=== PATIENT | female | born 1975 | race African-American/Black ===

== ENCOUNTER 2017-09-06 17:13 | Emergency (ER) | payer BC, OTHER ==
--- NOTE | 2017-09-06 17:39 | PDOC ---
Rapid Medical Evaluation Chief Complaint: AV shunt bleeding Time Seen by Provider: 09/06/17 17:35 Medical Evaluation: Allergies Allergy/AdvReac Type Severity Reaction Status Date / Time Penicillins Allergy Mild Rash Verified 09/06/17 17:34 09/06/17 17:35 I have performed a brief in-person evaluation of this patient. The patient presents with a chief complaint of abdominal cramping with vaginal bleeding with clots. States wakes up in cold sweats and having chills. Also reports heavy bleeding with headache. Reports just completed 2 cycles of ivf. Pertinent physical exam findings are even and unlabored breathing, clear bilaterally abdomen soft with generalized abdominal tenderness I have ordered the following urine and analgesia this patient will proceed to the ED for further evaluation.
[2017-09-06 17:40] VITALS: BMI 41.3
[2017-09-06] MEDS ORDERED: ACETAMINOPHEN 500 MG TABLET (FP) PO ONE (17:40)
--- NOTE | 2017-09-06 18:07 | PDOC ---
History of Present Illness - General Chief Complaint: Vaginal Bleeding Stated Complaint: PAIN Time Seen by Provider: 09/06/17 17:35 - History of Present Illness Initial Comments: 42 year old female currently undergoing IVF (had a second round 12 days prior) that have been unsuccessful (recently deemed unsuccessful on Tuesday09/02/17) presenting with vaginal bleeding for the pat 4 days. States that she has had heavy bleeding after cessation of her IVF hormones in the past but thee past few days she has soaked through 4-5 pads per day. She als feels wak and has a headache. Denies nausea, vomiting, diarrhea, constipation, fevers, chills, or other sick symptoms. 09/06/17 20:33 Past History - Past Medical History Allergies/Adverse Reactions: Allergies Allergy/AdvReac Type Severity Reaction Status Date / Time Penicillins Allergy Mild Rash Verified 09/06/17 17:34 Home Medications: Ambulatory Orders NK [No Known Home Medication] 09/06/17 Anemia: No Asthma: Yes Cancer: No Cardiac Disorders: No CVA: No COPD: Yes CHF: No Dementia: No Diabetes: No GI Disorders: Yes (GERD) Disorders: No HTN: No Hypercholesterolemia: No Liver Disease: No Seizures: No Thyroid Disease: No - Surgical History Abdominal Surgery: Yes (TUMMY ABHINAV 2003,GASTRIC BANDING 02/03/15) Appendectomy: No Cardiac Surgery: No Cholecystectomy: No GI Surgery: Yes (lap band) Lung Surgery: No Orthopedic Surgery: Yes (CARPAL TUNNEL) - Immunization History Td Vaccination: No Immunization Up to Date: Yes - Suicide/Smoking/Psychosocial Hx Smoking Status: No Smoking History: Never smoked Have you smoked in the past 12 months: No Number of Cigarettes Smoked Daily: 0 Information on smoking cessation initiated: No Hx Alcohol Use: No Drug/Substance Use Hx: No Substance Use Type: None Hx Substance Use Treatment: No Review of Systems - Review of Systems Constitutional: No: Chills, Diaphoresis, Fever HEENTM: No: See HPI, Eye Pain, Blurred Vision Respiratory: No: Cough, Orthopnea, Shortness of Breath Cardiac (ROS): No: See HPI, Chest Pain, Edema, Irregular Heart Rate ABD/GI: No: Constipated, Diarrhea, Nausea, Poor Appetite, Vomiting : No: Burning, Dysuria, Discharge, Hematuria Musculoskeletal: No: Joint Pain, Joint Swelling, Muscle Pain, Muscle Weakness Integumentary: No: Bruising, Change in Color, Erythema, Flushing, Lesions, Lumps Neurological: Yes: Headache. No: Numbness, Paresthesia Psychiatric: No: Anxiety, Depression *Physical Exam - Vital Signs Last Vital Signs Temp Pulse Resp BP Pulse Ox 98.4 F 79 18 115/88 100 09/06/17 17:35 09/06/17 17:35 09/06/17 17:35 09/06/17 17:35 09/06/17 17:35 - Physical Exam General Appearance: Yes: Nourished, Appropriately Dressed. No: Apparent Distress HEENT: positive: EOMI, CHULA, Normal ENT Inspection, Normal Voice Neck: positive: Trachea midline, Normal Thyroid, Supple. negative: Tender, Rigid Respiratory/Chest: positive: Lungs Clear, Normal Breath Sounds. negative: Chest Tender, Respiratory Distress, Accessory Muscle Use Cardiovascular: positive: Regular Rhythm, Regular Rate Female Pelvic Exam: positive: normal external exam, cervical os closed, normal adnexa, normal size ovaries, other (small amount of blood in the vaginal valt but no active bleeding, clots, or lesions.). negative: CMT, discharge, lesions Gastrointestinal/Abdominal: positive: Normal Bowel Sounds, Tender (Right suprapubic/ pelvic pain), Flat, Soft Musculoskeletal: positive: Normal Inspection. negative: CVA Tenderness Extremity: positive: Normal Capillary Refill, Normal Inspection, Normal Range of Motion Integumentary: positive: Normal Color, Dry, Warm Neurologic: positive: Fully Oriented, Alert, Normal Mood/Affect, Normal Response , Motor Strength 5/5 ED Treatment Course - LABORATORY CBC & Chemistry Diagram: 09/06/17 18:15 09/06/17 18:15 Medical Decision Making - Medical Decision Making 42 year old female with abdominal cramping and bloody vaginal discharge since her cessation if IVF hormones after being deemed unsuccessful a few days prior. States she has gone through 4-5 pads per day and feels weak. Her CBC is stable here, she is unable to give urine. Transvaginal US only demonstrated a simple left sided ovarian cyst. Her pain improved with Tylenol and Toradol and she hadn 't bleed to any significant level during her visit. She will be DC'd with obstetrician gynecologist follow up. 09/06/17 20:47 *DC/Admit/Observation/Transfer Diagnosis at time of Disposition: Vaginal bleeding - Discharge Dispostion Disposition: HOME Condition at time of disposition: Improved Admit: No - Referrals Referrals: Jean Claude Collins MD [Staff Physician] - - Patient Instructions Printed Discharge Instructions: DI for Vaginal Bleeding Additional Instructions: Your vaginal bleeding should improve over the next few days but may take longer. 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 Your transvaginal ultrasound did not show any abnormalities in your uterus but have a small cyst in your left ovary. Please return to the Ed if you have any new or worsening symptoms. - Post Discharge Activity Forms/Work/School Notes: Back to Work
--- NOTE | 2017-09-06 18:21 | PDOC ---
Attending Attestation - Resident Resident Name: Vikas Andinoangelitahudson - HPI HPI: 09/06/17 18:21 42-year-old female who has had multiple rounds of IVF presents with pelvic cramping and bleeding. She had a failed IVF implantation done last week, but states that her vaginal bleeding is heavier than usual. 09/06/17 19:35 THE er - Physicial Exam PE: 09/06/17 19:36 42 YO FMEALE P/W VAGINAL BLEEDING HEAD NCAT NECK SUPPLE LUNGS CTA B/L CVS [id number] ABD NO REBOUBND ,NO GUARDING EXT NO EDEMA,NO DEFORMITIES PELVIC BLOOD IN VAG VAULT NEURO AXOX3,AMBULATORY,NO FOCAL NEURO DEFICITS SKIN WARM AND DRY PSYCH APPROPRIATE - Medical Decision Making 09/06/17 20:06 labs reviewed, no anemia NEGATIVE bhcg 09/06/17 20:19 Main complaint now is her pelvic cramping and pain. 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 Pelvic ultrasound showed a normal uterus, normal endometrial thickness, no torsion, there were some simple cysts or follicles found
[2017-09-06] MEDS ORDERED: ACETAMINOPHEN 500 MG TABLET (FP) ONE (18:26)
[2017-09-06 18:38] LABS: BASO % 1.3 % (0-2.0); HEMATOCRIT 35.1 % (32.4-45.2); HEMOGLOBIN 11.8 GM/dL (10.7-15.3); LYMPH % 42.5 % (8-40); MCH 28.5 pg (25.7-33.7); MCHC 33.6 g/dl (32.0-36.0); MEAN CELL VOLUME 84.9 fl (80-96); MEAN PLT VOLUME 7.9 fl (7.5-11.1); NEUT % 43.2 % (42.8-82.8); PLATELET COUNT 305 K/MM3 (134-434); RBC 4.13 M/mm3 (3.60-5.2); RDW 14.2 % (11.6-15.6); WHITE BLOOD COUNT 7.9 K/mm3 (4.0-10.0)
[2017-09-06 18:49] LABS: INR 1.05 (0.82-1.09); PROTHROMBIN TIME (PATIENT) 11.9 SEC (9.7-13.0)
[2017-09-06 18:52] LABS: ACTIVATED PTT 26.4 SECONDS (26.9-34.4)
[2017-09-06 19:17] LABS: ALBUMIN 3.5 g/dl (3.4-5.0); ANION GAP 5 (8-16); BILIRUBIN,TOTAL 0.2 mg/dL (0.2-1.0); BLOOD UREA NITROGEN 13 mg/dL (7-18); CALCIUM 8.7 mg/dL (8.5-10.1); CHLORIDE 112 mmol/L (98-107); CO2 25 mmol/L (21-32); CREATININE 1.2 mg/dL (0.55-1.02); GLUCOSE,RANDOM 86 mg/dL (74-106); POTASSIUM 4.2 mmol/L (3.5-5.1); SGOT/AST 13 U/L (15-37); SGPT/ALT 17 U/L (12-78); SODIUM 142 mmol/L (136-145)
[2017-09-06 19:18] LABS: ALK PHOS 83 U/L (45-117); TOT PROT 7.6 g/dl (6.4-8.2)
[2017-09-06 20:10] VITALS: BP 116/82; PULSE 82; TEMP 98.2
[2017-09-06] MEDS ORDERED: KETOROLAC TROMETHAMINE 30 MG/1 ML VIAL IM ONE (20:23)
[2017-09-06] MEDS ORDERED: KETOROLAC TROMETHAMINE 30 MG/1 ML VIAL ONE (20:36)
[2017-09-06] MEDS ORDERED: KETOROLAC TROMETHAMINE 30 MG/1 ML VIAL IVPUSH ONE (20:58)
== END 2017-09-06 21:07 | disposition home or self-care (01) ==
LOC: JER 17:13
PROC: 3E0333Z Introduction of Anti-inflammatory into Peripheral Vein, Percutaneous Approach (ICD-10-PCS; principal; 2017-09-06)
DX: N93.8 Other specified abnormal uterine and vaginal bleeding (principal); T38.895A Adverse effect of other hormones and synthetic substitutes, initial encounter
CPT/HCPCS: 36415; 76830-TC; 80053; 84702; 85025; 85610; 85730; 86850; 86900; 86901; 99283-25

== ENCOUNTER 2018-03-23 14:58 | Emergency (ER) | payer BC ==
--- NOTE | 2018-03-23 15:16 | PDOC ---
Rapid Medical Evaluation Chief Complaint: Weakness Time Seen by Provider: 03/23/18 15:09 Medical Evaluation: Allergies Allergy/AdvReac Type Severity Reaction Status Date / Time Penicillins Allergy Mild Rash Verified 09/06/17 17:34 03/23/18 15:10 I have performed a brief in-person evaluation of this patient. The patient presents with a chief complaint of: multiple complaints, cough/ non productive, body aches, severe headache/ frontal, was sick with cold last week - worsening, took meds 2 hours ago. Pertinent physical exam findings: malaisic, tearful, c/o frontal sinus headache , slow to respond to questions. I have ordered the following: Influenza swab, UCG, CT head/ sinus The patient will proceed to the ED for further evaluation. 03/23/18 15:17 03/23/18 15:17 03/23/18 15:21
[2018-03-23 15:17] VITALS: BP 116/70; PULSE 76; TEMP 98.1; BMI 45.8
[2018-03-23] MEDS ORDERED: SODIUM CHLORIDE 1,000 ML IV STA (16:22)
[2018-03-23] MEDS ORDERED: METOCLOPRAMIDE HCL INJECTION 10 MG/2 ML VIAL IVPB ONE (16:22)
[2018-03-23] MEDS ORDERED: KETOROLAC TROMETHAMINE 30 MG/1 ML VIAL IVPUSH ONE (16:23)
[2018-03-23] MEDS ORDERED: METOCLOPRAMIDE HCL INJECTION 10 MG/2 ML VIAL ONE (16:33)
[2018-03-23] MEDS ORDERED: KETOROLAC TROMETHAMINE 30 MG/1 ML VIAL ONE (17:00)
[2018-03-23 17:08] LABS: BASO % 0.9 % (0-2.0); EOS % 3.7 % (0-4.5); HEMATOCRIT 36.9 % (32.4-45.2); HEMOGLOBIN 12.4 GM/dL (10.7-15.3); LYMPH % 27.8 % (8-40); MCH 28.4 pg (25.7-33.7); MCHC 33.5 g/dl (32.0-36.0); MEAN CELL VOLUME 84.8 fl (80-96); MEAN PLT VOLUME 7.8 fl (7.5-11.1); MONO % 6.5 % (3.8-10.2); NEUT % 61.1 % (42.8-82.8); PLATELET COUNT 332 K/MM3 (134-434); RBC 4.35 M/mm3 (3.60-5.2); RDW 14.2 % (11.6-15.6); WHITE BLOOD COUNT 8.9 K/mm3 (4.0-10.0)
--- NOTE | 2018-03-23 17:10 | PDOC ---
History of Present Illness - General Chief Complaint: Headache Stated Complaint: NOT FEELING WELL DIZZY Time Seen by Provider: 03/23/18 15:09 History Source: Patient Exam Limitations: No Limitations - History of Present Illness Initial Comments: 03/23/18 18:48 Patient is a 42-year-old female with past medical history of asthma, who presents emergency Department with 1 day of headache. Patient states that she had been sick with a viral like illness last week. She states that she was congested with sore throat. She states her symptoms resolved a couple of days ago. She states that she then again came down with another viral like illness admits to red eyes, nausea, congestion. She states that her headache started yesterday and gradually got worse. She tried going to worsening however the headache was too intense. Admits to subjective fevers and chills. Denies shortness of breath, difficulty breathing, chest pain, vomiting, diarrhea and constipation. Past History - Travel Traveled outside of the country in the last 30 days: No Close contact w/someone who was outside of country & ill: No - Past Medical History Allergies/Adverse Reactions: Allergies Allergy/AdvReac Type Severity Reaction Status Date / Time Penicillins Allergy Mild Rash Verified 03/23/18 15:17 Home Medications: Ambulatory Orders Doxycycline Hyclate 100 mg PO BID #20 tablet 03/23/18 Fluticasone Prop 0.05% Nasal [Flonase -] 1 - 2 spray NS DAILY #1 spray.pump 12/31 Ibuprofen 800 mg PO TID #30 tablet 03/23/18 Anemia: No Asthma: Yes Cancer: No Cardiac Disorders: No CVA: No COPD: Yes CHF: No Dementia: No Diabetes: No GI Disorders: Yes (GERD) Disorders: No HTN: No Hypercholesterolemia: No Liver Disease: No Seizures: No Thyroid Disease: No - Surgical History Abdominal Surgery: Yes (SULMAMY ABHINAV 2003,GASTRIC BANDING 02/03/15) Appendectomy: No Cardiac Surgery: No Cholecystectomy: No GI Surgery: Yes (lap band) Lung Surgery: No Orthopedic Surgery: Yes (CARPAL TUNNEL) - Immunization History Td Vaccination: No Immunization Up to Date: Yes - Suicide/Smoking/Psychosocial Hx Smoking Status: No Smoking History: Never smoked Have you smoked in the past 12 months: No Number of Cigarettes Smoked Daily: 0 Hx Alcohol Use: No Drug/Substance Use Hx: No Substance Use Type: None Hx Substance Use Treatment: No Review of Systems - Review of Systems Able to Perform ROS?: Yes Comments:: 03/23/18 18:44 CONSTITUTIONAL: Present: chills, malaise Absent: fever, diaphoresis, loss of appetite HEENT: Present: nasal congestion, rhinorrhea Absent: throat pain, throat swelling, difficulty swallowing, mouth swelling, ear pain, eye pain, visual Changes CARDIOVASCULAR: Absent: chest pain, loss of consciousness, palpitations, irregular heart rate, peripheral edema RESPIRATORY: Absent: cough, shortness of breath, dyspnea with exertion, orthopnea, wheezing, stridor, hemoptysis GASTROINTESTINAL: Present: nausea Absent: abdominal pain, abdominal distension, nausea, vomiting, diarrhea, constipation, melena, hematochezia GENITOURINARY: Absent: dysuria, frequency, urgency, hesitancy, hematuria, flank pain, genital pain MUSCULOSKELETAL: Absent: myalgia, arthralgia, joint swelling SKIN: Absent: rash, itching, pallor HEMATOLOGIC/IMMUNOLOGIC: Absent: easy bleeding, easy bruising, lymphadenopathy, frequent infections ENDOCRINE: Absent: unexplained weight gain, unexplained weight loss, heat intolerance, cold intolerance NEUROLOGIC: Absent: headache, focal weakness or paresthesias, dizziness, unsteady gait, seizure, mental status changes, bladder or bowel incontinence PSYCHIATRIC: Absent: anxiety, depression, suicidal or homicidal ideation, hallucinations. Is the patient limited Yemeni proficient: No *Physical Exam - Vital Signs Last Vital Signs Temp Pulse Resp BP Pulse Ox 98.1 F 76 18 116/70 98 03/23/18 15:10 03/23/18 15:10 03/23/18 15:10 03/23/18 15:10 03/23/18 15:10 - Physical Exam Comments: 03/23/18 18:45 GENERAL: Well developed, well nourished. Awake and alert. No acute distress. HEENT: Normocephalic, atraumatic. PERRLA, EOMI. No conjunctival pallor. Sclera are non- icteric. Pt with conjunctivitis b/l. Moist mucous membranes. Oropharynx is clear. TTP of the maxillary sinuses NECK: Supple. Full ROM. No JVD. Carotid pulses 2+ and symmetric, without bruits. No thyromegaly. (+) cervical lymphadenopathy b/l. No brudinsky or kernig sign CARDIOVASCULAR: Regular rate and rhythm. No murmurs, rubs, or gallops. Distal pulses are 2+ and symmetric. PULMONARY: No evidence of respiratory distress. Lungs clear to auscultation bilaterally. No wheezing, rales or rhonchi. ABDOMINAL: Soft. Non-tender. Non-distended. No rebound or guarding. No organomegaly. Normoactive bowel sounds. MUSCULOSKELETAL Normal range of motion at all joints. No bony deformities or tenderness. No CVA tenderness. EXTREMITIES: No cyanosis. No clubbing. No edema. No calf tenderness. SKIN: Warm and dry. Normal capillary refill. No rashes. No jaundice. NEUROLOGICAL: Alert, awake, appropriate. Cranial nerves 2-12 intact. No deficits to light touch and temperature in face, upper extremities and lower extremities. No motor deficits in the in face, upper extremities and lower extremities. Normoreflexic in the upper and lower extremities. Normal speech. Toes are down- going bilaterally. Gait is normal without ataxia. PSYCHIATRIC: Cooperative. Good eye contact. Appropriate mood and affect. ED Treatment Course - LABORATORY CBC & Chemistry Diagram: 03/23/18 16:25 03/23/18 16:25 - ADDITIONAL ORDERS Additional order review: Laboratory Results 03/23/18 15:41 Urine HCG, Qual Negative 03/23/18 15:35 Influenza Types A,B Antigen - Final Nasopharyngeal Swab - Final - Medications Given in the ED: ED Medications Discontinued Medications Generic Name Dose Route Start Last Admin Trade Name Freq PRN Reason Stop Dose Admin Diphenhydramine HCl 12.5 mg 03/23/18 16:22 03/23/18 16:35 Benadryl Injection - IVPUSH 03/23/18 16:23 12.5 mg ONCE ONE Administration Ketorolac Tromethamine 30 mg 03/23/18 16:23 03/23/18 17:00 Toradol Injection - IVPUSH 03/23/18 16:24 30 mg ONCE ONE Administration Metoclopramide HCl 10 mg 03/23/18 16:22 03/23/18 16:35 Reglan Injection - IVPB 03/23/18 16:23 10 mg ONCE ONE Administration Medical Decision Making - Medical Decision Making 03/23/18 17:48 Patient is a 42-year-old female with asthma who presents to the emergency department today for 2 days of headache and cold-like symptoms. On exam patient is tender to palpation of the sinuses. Patient is neurologically intact with no focal deficits. Negative Brudinsky and Kernig signs. Sinus infection versus migraine versus flu. Head CT and facial bone CT ordered from [facility] for meningitis at this time IV fluids, Reglan, Benadryl and Toradol for pain Reevaluate 03/23/18 19:00 Patient with no leukocytosis on blood work, flu swab is negative. Electrolytes are grossly intact. Pt currenlty pending CT read and re-evaluation of her headache 03/23/18 19:04 You've the Patient Reports Relief of Her Symptoms and Headache with Reglan, Toradol and Benadryl. CT Sinuses Show Sinusitis to the Ethmoid Sinuses. Brain CT Is Negative for Ischemia, Infarcts, Mass and Bleed at This Time. We'll Discharge Home with Antibiotics to Treat Her Sinusitis. I discussed the physical exam findings, ancillary test results and final diagnoses with the patient. I answered all of the patient's questions. The patient was satisfied with the care received and felt comfortable with the discharge plan and treatment plan. The Patient agrees to follow up with the primary care physician/specialist within 24-72 hours. Return precautions were given. *DC/Admit/Observation/Transfer Diagnosis at time of Disposition: Sinusitis, acute Qualifiers: Sinusitis location: ethmoidal Recurrence: non-recurrent Qualified Code(s): J01.20 - Acute ethmoidal sinusitis, unspecified - Discharge Dispostion Disposition: HOME Condition at time of disposition: Stable Decision to Admit order: No - Prescriptions Prescriptions: Doxycycline Hyclate 100 mg PO BID #20 tablet Fluticasone Prop 0.05% Nasal [Flonase -] 1 - 2 spray NS DAILY #1 spray.pump Ibuprofen 800 mg PO TID #30 tablet - Referrals Referrals: Walter Wright MD [Staff Physician] - - Patient Instructions Printed Discharge Instructions: DI for Sinusitis Additional Instructions: You have a sinus infection as shown on your CT today. Please take the doxycycline 100 mg twice a day for 10 days. Take this medication with food. Please use the Flonase twice a day to help with her congestion. He may take ibuprofen 800 mg every 8 hours as needed for pain. Do not exceed more than 3000 mg a day. Please follow up with ENT if her symptoms are not resolving in 5-10 days. Return to the emergency department for fevers, vomiting, worsening headache despite treatment, weakness or if you have any changes in your symptoms. - Post Discharge Activity Forms/Work/School Notes: Back to Work
--- NOTE | 2018-03-23 17:26 | PDOC ---
*Physical Exam - Vital Signs Last Vital Signs Temp Pulse Resp BP Pulse Ox 98.1 F 76 18 116/70 98 03/23/18 15:10 03/23/18 15:10 03/23/18 15:10 03/23/18 15:10 03/23/18 15:10 ED Treatment Course - LABORATORY CBC & Chemistry Diagram: 03/23/18 16:25 03/23/18 16:25 - ADDITIONAL ORDERS Additional order review: Laboratory Results 03/23/18 15:41 Urine HCG, Qual Negative 03/23/18 15:35 Influenza Types A,B Antigen - Final Nasopharyngeal Swab - Final - Medications Given in the ED: ED Medications Discontinued Medications Generic Name Dose Route Start Last Admin Trade Name Freq PRN Reason Stop Dose Admin Diphenhydramine HCl 12.5 mg 03/23/18 16:22 03/23/18 16:35 Benadryl Injection - IVPUSH 03/23/18 16:23 12.5 mg ONCE ONE Administration Sodium Chloride 1,000 mls @ 1,000 mls/hr 03/23/18 16:22 03/23/18 16:35 Normal Saline - IV 03/23/18 17:21 1,000 mls/hr ASDIR STA Administration Ketorolac Tromethamine 30 mg 03/23/18 16:23 03/23/18 17:00 Toradol Injection - IVPUSH 03/23/18 16:24 30 mg ONCE ONE Administration Metoclopramide HCl 10 mg 03/23/18 16:22 03/23/18 16:35 Reglan Injection - IVPB 03/23/18 16:23 10 mg ONCE ONE Administration Medical Decision Making - Medical Decision Making 03/23/18 17:25 The patient was seen and evaluated in conjunction with VENECIA Coleman under my direct supervision, ancillary studies were reviewed. I agree with the plan as outlined by VENECIA Coleman. *DC/Admit/Observation/Transfer Diagnosis at time of Disposition: Sinusitis, acute - Discharge Dispostion Disposition: HOME Condition at time of disposition: Stable - Prescriptions Prescriptions: Doxycycline Hyclate 100 mg PO BID #20 tablet Fluticasone Prop 0.05% Nasal [Flonase -] 1 - 2 spray NS DAILY #1 spray.pump Ibuprofen 800 mg PO TID #30 tablet - Referrals Referrals: Walter Wright MD [Staff Physician] - - Patient Instructions Printed Discharge Instructions: DI for Sinusitis Additional Instructions: You have a sinus infection as shown on your CT today. Please take the doxycycline 100 mg twice a day for 10 days. Take this medication with food. Please use the Flonase twice a day to help with her congestion. He may take ibuprofen 800 mg every 8 hours as needed for pain. Do not exceed more than 3000 mg a day. Please follow up with ENT if her symptoms are not resolving in 5-10 days. Return to the emergency department for fevers, vomiting, worsening headache despite treatment, weakness or if you have any changes in your symptoms. - Post Discharge Activity Forms/Work/School Notes: Back to Work
[2018-03-23 17:36] LABS: ALBUMIN 3.9 g/dl (3.4-5.0); ALK PHOS 106 U/L (45-117); ANION GAP 8 MMOL/L (8-16); BILIRUBIN,TOTAL 0.3 mg/dL (0.2-1); BLOOD UREA NITROGEN 12 mg/dL (7-18); CALCIUM 9.4 mg/dL (8.5-10.1); CHLORIDE 104 mmol/L (98-107); CO2 27 mmol/L (21-32); CREATININE 0.9 mg/dL (0.55-1.3); GLUCOSE,RANDOM 123 mg/dL (74-106); POTASSIUM 4.1 mmol/L (3.5-5.1); SGOT/AST 14 U/L (15-37); SGPT/ALT 18 U/L (13-61); SODIUM 139 mmol/L (136-145); TOT PROT 8.1 g/dl (6.4-8.2)
== END 2018-03-23 19:22 | disposition home or self-care (01) ==
LOC: JER 14:58
PROC: 3E033GC Introduction of Other Therapeutic Substance into Peripheral Vein, Percutaneous Approach (ICD-10-PCS; principal; 2018-03-23)
PROC: 3E033GC Introduction of Other Therapeutic Substance into Peripheral Vein, Percutaneous Approach (ICD-10-PCS; 2018-03-23)
PROC: 3E033NZ Introduction of Analgesics, Hypnotics, Sedatives into Peripheral Vein, Percutaneous Approach (ICD-10-PCS; 2018-03-23)
DX: J01.20 Acute ethmoidal sinusitis, unspecified (principal)
CPT/HCPCS: 36415; 70450-TC; 70486-TC; 80053; 84703; 85025; 87804; 99283-25; J7030

== ENCOUNTER 2019-07-04 20:01 | Emergency (ER) | payer OTHER ==
--- NOTE | 2019-07-04 20:13 | PDOC ---
Rapid Medical Evaluation Time Seen by Provider: 07/04/19 20:11 Medical Evaluation: Allergies Allergy/AdvReac Type Severity Reaction Status Date / Time Penicillins Allergy Mild Rash Verified 03/23/18 15:17 07/04/19 20:11 I have performed a brief in-person evaluation of this patient. The patient presents with a chief complaint of: nail injury Pertinent physical exam findings: discharge to R thumbnail, partially avulsed nail I have ordered the following: nothing The patient will proceed to the ED for further evaluation. Discharge Disposition - Diagnosis Nail avulsion - Referrals - Patient Instructions - Post Discharge Activity
[2019-07-04 20:16] VITALS: BP 138/88; PULSE 80; TEMP 97.9; BMI 49.7
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
== END 2019-07-04 20:30 | disposition home or self-care (01) ==
LOC: JERFT 20:01
DX: S61.101A Unspecified open wound of right thumb with damage to nail, initial encounter (principal); W50.1XXA Accidental kick by another person, initial encounter; Y93.89 Activity, other specified; Y92.89 Other specified places as the place of occurrence of the external cause; Y99.8 Other external cause status; Z88.0 Allergy status to penicillin
CPT/HCPCS: 99281-25

== ENCOUNTER 2019-08-06 19:38 | Inpatient (IN) | payer OTHER ==
[2019-08-06] MEDS ORDERED: methylPREDNISolone NA SUCC 125 MG/2 ML VIAL IVPB ONE (19:43)
[2019-08-06] MEDS ORDERED: ALBUTEROL SO4 0.083% IH SOL 2.5 MG/3 ML VIAL.NEB. NEB PRN (19:43)
--- NOTE | 2019-08-06 19:44 | PDOC ---
Rapid Medical Evaluation Chief Complaint: Respiratory Distress Time Seen by Provider: 08/06/19 19:41 Medical Evaluation: Allergies Allergy/AdvReac Type Severity Reaction Status Date / Time Penicillins Allergy Mild Rash Verified 03/23/18 15:17 08/06/19 19:41 44 year old history of asthma c/o difficulty breathing, worsening SOB since DISCHARGE. + COvid. PE'; patient dyspneic, decreased breath sounds. wheezing A: covid P: chest xray labs, duoneb, solumedrol took tylenol AT 3 PM patient to the er room Discharge Disposition - Diagnosis Coronavirus infection, Respiratory distress - Referrals - Patient Instructions - Post Discharge Activity
--- NOTE | 2019-08-06 20:08 | PDOC ---
History of Present Illness - General Stated Complaint: SICK Time Seen by Provider: 08/06/19 19:41 - History of Present Illness Initial Comments: 08/06/19 20:05 44 year old woman with a history of asthma who was seem in the ER 2 days ago and found to be covid positive. She reports that she started feeling more short of breath today and has been using her albuterol inhaler 2 puffs 3 times a day with minimal relief. She has been having fevers as well which she has been using tylenol for. She deneis any other complaints. ROS GENERAL/CONSTITUTIONAL: + fever or chills. No weakness. HEAD, EYES, EARS, NOSE AND THROAT: No change in vision. No ear pain or discharge. No sore throat. CARDIOVASCULAR: No chest pain, +shortness of breath RESPIRATORY: No cough, + wheezing, or hemoptysis. GASTROINTESTINAL: No nausea, vomiting, diarrhea or constipation. GENITOURINARY: No dysuria, frequency, or change in urination. MUSCULOSKELETAL: No joint or muscle swelling or pain. No neck or back pain. SKIN: No rash NEUROLOGIC: No headache, vertigo, loss of consciousness, or change in strength/sensation. ENDOCRINE: No increased thirst. No abnormal weight change HEMATOLOGIC/LYMPHATIC: No anemia, easy bleeding, or history of blood clots. ALLERGIC/IMMUNOLOGIC: No hives or skin allergy. PE GENERAL: Awake, alert, and fully oriente HEAD: No signs of trauma, normocephalic, atraumatic EYES: EOMI, sclera anicteric, conjunctiva clear ENT: oropharynx clear without exudates. Moist mucosa NECK: Normal ROM, supple LUNGS: No distress, speaks full sentences, audible wheezing, abdominal retractions HEART: Regular rate and rhythm, normal S1 and S2, no murmurs, rubs or gallops, peripheral pulses normal and equal bilaterally. ABDOMEN: Soft, nontender, No guarding, no rebound. No masses EXTREMITIES : Normal inspection, Normal range of motion, no edema. No clubbing or cyanosis. NEUROLOGICAL: Cranial nerves II through XII grossly intact. Normal speech, no focal sensorimotor deficits SKIN: Warm, Dry, normal turgor, no rashes or lesions noted Assessment and Plan 44 year old woman with a history of asthma who was seem in the ER 2 days ago and found to be covid positive. Patient with audible wheezing, abdominal retractions will need admission for respiratory distress and closer monitoring Dionna Gloria, PGY2 Emergency Medicine 08/06/19 20:13 Past History - Past Medical History Allergies/Adverse Reactions: Allergies Allergy/AdvReac Type Severity Reaction Status Date / Time Penicillins Allergy Mild Rash Verified 08/06/19 20:05 Home Medications: Ambulatory Orders Albuterol Sulfate [Albuterol Sulfate Hfa] 2 puff IH Q6H PRN 08/01/19 Acetaminophen [Tylenol .Regular Strength -] 650 mg PO Q4H PRN tablet 08/04/19 predniSONE [Deltasone -] 40 mg PO DAILY #5 tablet 08/04/19 Anemia: Yes Asthma: Yes Cancer: No Cardiac Disorders: No CVA: No COPD: No CHF: No Dementia: No Diabetes: No GI Disorders: Yes (GERD) Disorders: No HTN: No Hypercholesterolemia: No Liver Disease: No Seizures: No Thyroid Disease: No - Surgical History Abdominal Surgery: Yes (TUMMY TUCK 2003,GASTRIC BANDING 02/03/15) Appendectomy: No Cardiac Surgery: No Cholecystectomy: No GI Surgery: Yes (lap band) Lung Surgery: No Neurologic Surgery: No Orthopedic Surgery: Yes (CARPAL TUNNEL) - Immunization History Td Vaccination: No Immunization Up to Date: Yes - Psycho Social/Smoking Cessation Hx Smoking Status: No Smoking History: Never smoked Have you smoked in the past 12 months: No Number of Cigarettes Smoked Daily: 0 Hx Alcohol Use: No Drug/Substance Use Hx: No Substance Use Type: None Hx Substance Use Treatment: No *Physical Exam - Vital Signs Last Vital Signs Temp Pulse Resp BP Pulse Ox 99.1 F 102 H 24 H 108/73 100 08/06/19 19:42 08/06/19 19:42 08/06/19 19:42 08/06/19 19:42 08/06/19 19:42 Discharge - Discharge Information Clinical Impression/Diagnosis: Coronavirus infection, Respiratory distress - Follow up/Referral - Patient Discharge Instructions - Post Discharge Activity
[2019-08-06 20:11] VITALS: BMI 43.5
[2019-08-06] MEDS ORDERED: methylPREDNISolone NA SUCC 125 MG/2 ML VIAL IVPUSH ONE (20:12)
[2019-08-06] MEDS ORDERED: ALBUTEROL SO4 HFA INHALER IH ONE ×2 (20:16→20:17)
[2019-08-06] MEDS ORDERED: MAGNESIUM SULF 50% (8.12 MEQ/2 ML-1 GM VIAL) IVPB ONE (20:16)
[2019-08-06] MEDS ORDERED: MAGNESIUM 1GM/D5W - 2 GM/200 ML IVPB IVPB ONE (20:17)
[2019-08-06] MEDS ORDERED: methylPREDNISolone NA SUCC 125 MG/2 ML VIAL ONE (20:17)
[2019-08-06 21:09] LABS: BASO % 1.1 % (0-2.0); EOS % 0.9 % (0-4.5); HEMATOCRIT 37.9 % (32.4-45.2); HEMOGLOBIN 12.6 GM/dL (10.7-15.3); LYMPH % 38.8 % (8-40); MCHC 33.2 g/dl (32.0-36.0); MEAN CELL VOLUME 84.4 fl (80-96); MEAN PLT VOLUME 8.2 fl (7.5-11.1); MONO % 11.1 % (3.8-10.2); NEUT % 48.1 % (42.8-82.8); PLATELET COUNT 312 K/MM3 (134-434); RBC 4.49 M/mm3 (3.60-5.2); RDW 14.3 % (11.6-15.6); WHITE BLOOD COUNT 5.2 K/mm3 (4.0-10.0)
--- NOTE | 2019-08-06 21:32 | PDOC ---
Attending Attestation - Resident Resident Name: Dionna Gloria - ED Attending Attestation I have performed the following: I have examined & evaluated the patient, The case was reviewed & discussed with the resident, I agree w/resident's findings & plan - HPI HPI: 08/06/19 21:27 see resident hpi - Physicial Exam PE: 08/06/19 21:27 see resident exam - Critical Care Time Total Critical Care Time: 40 Critical Care Statement: The care of this patient involved high complexity decision making to prevent further life threatening deterioration of the patient's condition and/or to evaluate & treat vital organ system(s) failure or risk of failure. - Medical Decision Making 08/06/19 21:30 44-year-old female with history of asthma and morbid obesity status post recent visit with positive CoVid infection now with wheezing and increased work of breathing Will admit for asthma exacerbation in the setting of viral respiratory illness Discharge - Discharge Information Problems reviewed: Yes Clinical Impression/Diagnosis: Coronavirus infection, Respiratory distress - Follow up/Referral - Patient Discharge Instructions - Post Discharge Activity
[2019-08-06] MEDS ORDERED: ACETAMINOPHEN 325 MG TABLET (FP) PO ONE (22:06)
[2019-08-06] MEDS ORDERED: ACETAMINOPHEN 325 MG TABLET (FP) ONE (22:07)
[2019-08-06 23:00] LABS: ALBUMIN 3.6 g/dl (3.4-5.0); BILIRUBIN,TOTAL 0.3 mg/dL (0.2-1); CALCIUM 8.8 mg/dL (8.5-10.1); CREATININE 0.9 mg/dL (0.55-1.3); MAGNESIUM 2.9 mg/dL (1.8-2.4); PHOSPHOROUS 3.7 mg/dL (2.5-4.9); POTASSIUM 4.1 mmol/L (3.5-5.1); TOT PROT 8.1 g/dl (6.4-8.2)
[2019-08-07] MEDS ORDERED: ALBUTEROL SO4 0.083% IH SOL 2.5 MG/3 ML VIAL.NEB. NEB PRN (00:27)
[2019-08-07] MEDS ORDERED: AZITHROMYCIN IVPB 500 MG in DEXTROSE 5%-WATER - 250 ML IVPB ONE (00:30)
[2019-08-07] MEDS ORDERED: AZITHROMYCIN IVPB 500 MG/250 ML BAG IVPB ONE (01:03)
[2019-08-07] MEDS ORDERED: ACETAMINOPHEN 325 MG TABLET (FP) ONE ×2 (06:57→22:01)
[2019-08-07] MEDS: ACETAMINOPHEN 325 MG TABLET (FP) PO PRN ×2 (07:10→22:10)
[2019-08-07 07:26] LABS: BASO % 0.4 % (0-2.0); HEMATOCRIT 39.2 % (32.4-45.2); LYMPH % 21.5 % (8-40); MCH 27.9 pg (25.7-33.7); MCHC 33.2 g/dl (32.0-36.0); MONO % 1.9 % (3.8-10.2); NEUT % 76.2 % (42.8-82.8); PLATELET COUNT 316 K/MM3 (134-434); RBC 4.67 M/mm3 (3.60-5.2); RDW 14.3 % (11.6-15.6); WHITE BLOOD COUNT 4.4 K/mm3 (4.0-10.0)
[2019-08-07 07:51] LABS: ALBUMIN 3.9 g/dl (3.4-5.0); BILIRUBIN,TOTAL 0.5 mg/dL (0.2-1); BLOOD UREA NITROGEN 10.8 mg/dL (7-18); CALCIUM 8.9 mg/dL (8.5-10.1); CREATININE 0.8 mg/dL (0.55-1.3); POTASSIUM 4.4 mmol/L (3.5-5.1); TOT PROT 8.7 g/dl (6.4-8.2)
--- NOTE | 2019-08-07 15:11 | CON.PULM ---
Consult Consult Specialty:: PULMONARY Referred by:: FRANCOIS Reason for Consultation:: ASTHMA - History of Present Illness Chief Complaint: COUGH/WHEEZE/SOB History of Present Illness: 44 year old woman with a history of asthma who was seem in the ER 07-31 she was [id number] and discharge 07-25. She was found to be covid positive. She reports that she started feeling more short of breath today and has been using her albuterol inhaler 2 puffs 3 times a day with minimal relief. She has been having fevers as well which she has been using tylenol for. She deneis any other complaints. 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 No: Cancer, COPD, O2 Dependent, Pulmonary Embolus, Pulmonary Fibrosis Gastrointestinal: Yes: Hiatal Hernia Hepatobiliary: No: Cirrhosis Renal/: No: Renal Failure ...LMP: 01/19/15 Heme/Onc: No: Anemia Infectious Disease: Yes: Other (covid infection) - Past Surgical History Past Surgical History: Yes: Bariatric Surgery (Lap-band 02/03/15) - Alcohol/Substance Use Hx Alcohol Use: No History of Substance Use: reports: None - Smoking History Smoking history: Never smoked Have you smoked in the past 12 months: No Aproximately how many cigarettes per day: 0 - Social History ADL: Independent [facility] History of Recent Travel: No Home Medications - Allergies Allergies/Adverse Reactions: Allergies Allergy/AdvReac Type Severity Reaction Status Date / Time Penicillins Allergy Mild Rash Verified 08/06/19 20:05 - Home Medications Home Medications: Ambulatory Orders Albuterol Sulfate [Albuterol Sulfate Hfa] 2 puff IH Q6H PRN 08/01/19 Acetaminophen [Tylenol .Regular Strength -] 650 mg PO Q4H PRN tablet 08/04/19 predniSONE [Deltasone -] 40 mg PO DAILY #5 tablet 08/04/19 Family Medical History Family History: Unremarkable Review of Systems - Review of Systems Cardiovascular: denies: Chest Pain Respiratory: reports: Cough, Exercise Intolerance, SOB, SOB on Exertion, Wheezing. denies: Hemoptysis Gastrointestinal: denies: Abdominal Pain Physical Exam Vital Sings: Vital Signs Temperature 99.4 F 08/07/19 10:00 Pulse Rate 88 08/07/19 14:50 Respiratory Rate 18 08/07/19 14:50 Blood Pressure 118/71 08/07/19 14:50 O2 Sat by Pulse Oximetry (%) 99 08/07/19 14:50 Constitutional: Yes: Calm Eyes: Yes: EOM Intact HENT: Yes: Normocephalic Neck: Yes: Trachea Midline Cardiovascular: Yes: Regular Rate and Rhythm, S1, S2 Respiratory: Yes: CTA Bilaterally, Diminished Gastrointestinal: Yes: Abdomen, Obese Extremities: Yes: WNL Labs: CBC, BMP 08/07/19 05:56 08/07/19 05:56 Imaging - Results Chest X-ray: Report Reviewed, Image Reviewed Problem List - Problems (1) Coronavirus infection Code(s): B34.2 - CORONAVIRUS INFECTION, UNSPECIFIED (2) Asthma exacerbation Code(s): J45.901 - UNSPECIFIED ASTHMA WITH (ACUTE) EXACERBATION (3) Cough Code(s): R05 - COUGH Assessment/Plan MILD A/E B. ASTHMA IN PATIENT WITH COVID + RECENTLY DIAGNOSED HER ASTHMA SYMPTOMS ARE MILD AND CXR IS NEGATIVE/SHE DOES HAVE A LOW GRADE TEMP/WITH NORMAL LAB PARAMETERS I BELIEVE SHE IS FINDING IT EXTREMELY DIFFICULT TO SELF QUARANTINE AND HAS COME TO ED FOR ADMISSION SHE HAS BEEN INTUBATED IN PAST FOR ASTHMA SHORT COURSE STEROIDS MDI BRONCHODILATION O2 PRN WOULD COHORT WITH ANOTHER COVID + PATIENT WITH DROPLET PRECAUTIONS. WILL FOLLOW Camryn LOVING MD
--- NOTE | 2019-08-07 15:40 | CON.ID ---
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 No: Cancer, COPD, O2 Dependent, Pulmonary Embolus, Pulmonary Fibrosis Gastrointestinal: Yes: Hiatal Hernia Hepatobiliary: No: Cirrhosis Renal/: No: Renal Failure ...LMP: 01/19/15 Infectious Disease: Yes: Other (covid infection) - Past Surgical History Past Surgical History: Yes: Bariatric Surgery (Lap-band 02/03/15) - Alcohol/Substance Use Hx Alcohol Use: No History of Substance Use: reports: None - Smoking History Smoking history: Never smoked Have you smoked in the past 12 months: No Aproximately how many cigarettes per day: 0 - Social History ADL: Independent History of Recent Travel: No Home Medications - Allergies Allergies/Adverse Reactions: Allergies Allergy/AdvReac Type Severity Reaction Status Date / Time Penicillins Allergy Mild Rash Verified 08/06/19 20:05 - Home Medications Home Medications: Ambulatory Orders Albuterol Sulfate [Albuterol Sulfate Hfa] 2 puff IH Q6H PRN 08/01/19 Acetaminophen [Tylenol .Regular Strength -] 650 mg PO Q4H PRN tablet 08/04/19 predniSONE [Deltasone -] 40 mg PO DAILY #5 tablet 08/04/19 Physical Exam Vital Signs: Vital Signs Temperature 99.4 F 08/07/19 10:00 Pulse Rate 88 08/07/19 14:50 Respiratory Rate 18 08/07/19 14:50 Blood Pressure 118/71 08/07/19 14:50 O2 Sat by Pulse Oximetry (%) 99 08/07/19 14:50 Labs: CBC, BMP 08/07/19 05:56 08/07/19 05:56
[2019-08-07] MEDS ORDERED: HEPARIN NA (PORCINE) 5,000 UNITS/ML 1ML VIAL ONE ×2 (16:33→22:01)
[2019-08-07] MEDS ORDERED: CEFTRIAXONE 1 GM/50 ML BAG ONE (16:34)
[2019-08-07] MEDS: HEPARIN NA (PORCINE) 5,000 UNITS/ML 1ML VIAL SQ SCH ×2 (16:46→22:10)
[2019-08-07] MEDS: CEFTRIAXONE 1 GM in DEXTROSE 5%-WATER - 50 ML IVPB SCH (16:46)
--- NOTE | 2019-08-07 23:04 | HP ---
Admitting History and Physical - Admission History of Present Illness: Pt is a 44 y/o female w/ PMH significant for asthma(intubations in the past) who was admitted 08/01/19 and was found to be covid 19 positive. She reports that she started feeling more short of breath today and has been using her albuterol inhaler 2 puffs 3 times a day with minimal relief. She has been having fevers as well which she has been using tylenol for. Pt also complains of cough wc is dry and nonproductive and wheezing. Pt had cxr wc was normal. 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 No: Cancer, COPD, O2 Dependent, Pulmonary Embolus, Pulmonary Fibrosis Gastrointestinal: Yes: Hiatal Hernia Hepatobiliary: No: Cirrhosis Renal/: No: Renal Failure ...LMP: 01/19/15 Heme/Onc: No: Anemia Infectious Disease: Yes: Other (covid infection) - Past Surgical History Past Surgical History: Yes: Bariatric Surgery (Lap-band 02/03/15) - Smoking History Smoking history: Never smoked Have you smoked in the past 12 months: No Aproximately how many cigarettes per day: 0 - Alcohol/Substance Use Hx Alcohol Use: No History of Substance Use: reports: None - Social History ADL: Independent History of Recent Travel: No Home Medications - Allergies Allergies/Adverse Reactions: Allergies Allergy/AdvReac Type Severity Reaction Status Date / Time Penicillins Allergy Mild Rash Verified 08/06/19 20:05 - Home Medications Home Medications: Ambulatory Orders Albuterol Sulfate [Albuterol Sulfate Hfa] 2 puff IH Q6H PRN 08/01/19 Acetaminophen [Tylenol .Regular Strength -] 650 mg PO Q4H PRN tablet 08/04/19 predniSONE [Deltasone -] 40 mg PO DAILY #5 tablet 08/04/19 Review of Systems - Review of Systems Constitutional: reports: Fever Eyes: reports: No Symptoms HENT: reports: No Symptoms Neck: reports: No Symptoms Cardiovascular: reports: No Symptoms Respiratory: reports: Cough, SOB, Wheezing Gastrointestinal: reports: No Symptoms Genitourinary: reports: No Symptoms Physical Examination Vital Signs: Vital Signs Temperature 99.4 F 08/07/19 10:00 Pulse Rate 88 08/07/19 14:50 Respiratory Rate 18 08/07/19 14:50 Blood Pressure 118/71 08/07/19 14:50 O2 Sat by Pulse Oximetry (%) 99 08/07/19 14:50 Constitutional: Yes: Well Nourished Eyes: Yes: WNL HENT: Yes: WNL Neck: Yes: WNL, Supple Cardiovascular: Yes: WNL, Regular Rate and Rhythm Respiratory: Yes: Diminished Gastrointestinal: Yes: WNL, Normal Bowel Sounds, Soft Musculoskeletal: Yes: WNL Extremities: Yes: WNL Edema: No Neurological: Yes: WNL, Alert, Oriented ...Motor Strength: WNL Labs: CBC, BMP 08/07/19 05:56 08/07/19 05:56 Problem List - Problems (1) Asthma exacerbation Assessment/Plan: Will cont iv ceftriaxone/zithro Cont inhalers Code(s): J45.901 - UNSPECIFIED ASTHMA WITH (ACUTE) EXACERBATION
[2019-08-08] MEDS ORDERED: ALBUTEROL SO4 HFA INHALER IH PRN (00:32)
[2019-08-08] MEDS ORDERED: ALBUTEROL SO4 0.083% IH SOL 2.5 MG/3 ML VIAL.NEB. NEB PRN (00:39)
[2019-08-08] MEDS: ACETAMINOPHEN 325 MG TABLET (FP) PO PRN (08:30)
[2019-08-08] MEDS ORDERED: cefTRIAXone SODIUM 1 GM VIAL ONE ×2 (09:22→09:27)
[2019-08-08] MEDS ORDERED: DEXTROSE 5%-WATER - 50 ML IVPB ONE (09:22)
[2019-08-08] MEDS: predniSONE 20 MG TABLET (UD) PO SCH (09:25)
[2019-08-08] MEDS: CEFTRIAXONE 1 GM in DEXTROSE 5%-WATER - 50 ML IVPB SCH (09:28)
[2019-08-08] MEDS: HEPARIN NA (PORCINE) 5,000 UNITS/ML 1ML VIAL SQ SCH ×2 (09:28→21:14)
--- NOTE | 2019-08-08 12:23 | PN ---
Progress Note (short form) - Note Progress Note: PULMONARY SPOKE WITH PT ON PHONE STILL C/O COUGH,LESS SOB. REMAINS FEBRILE T 101.2. WILL CONTINE PREDNISONE 40 X ONE MORE DAY THEN REVALUATE IN AM. WILL START SYMBICORT 160/4.5 2PUFFS BID,SPIRIVA 2PUFFS DAILY,PLUS ROBITUSSIN AC Problem List - Problems (1) Coronavirus infection Code(s): B34.2 - CORONAVIRUS INFECTION, UNSPECIFIED (2) Asthma exacerbation Code(s): J45.901 - UNSPECIFIED ASTHMA WITH (ACUTE) EXACERBATION (3) Cough Code(s): R05 - COUGH Assessment/Plan SHORT COURSE STEROIDS MDI BRONCHODILATION O2 PRN SYMBICORT SPIRIVA ROBITUSSIN AC DR GORDILLO
--- NOTE | 2019-08-08 12:25 | PN ---
Progress Note, Physician History of Present Illness: stable feels much better spiked a fever still with cough - Current Medication List Current Medications: Active Medications Acetaminophen (Tylenol -) 650 mg PO Q4H PRN PRN Reason: FEVER Last Admin: 08/08/19 08:30 Dose: 650 mg Documented by: Albuterol Sulfate (Ventolin 0.083% Nebulizer Soln -) 1 amp NEB Q15M PRN PRN Reason: Dyspnea Albuterol Sulfate (Ventolin 0.083% Nebulizer Soln -) 1 amp NEB RQ4H PRN PRN Reason: SHORT OF BREATH/WHEEZING Heparin Sodium (Porcine) (Heparin -) 5,000 unit SQ BID [facility] Last Admin: 08/08/19 09:28 Dose: 5,000 unit Documented by: Ceftriaxone Sodium 1 gm/ (Dextrose) 50 mls @ 100 mls/hr IVPB DAILY [facility]; Prot ocol Last Admin: 08/08/19 09:28 Dose: 100 mls/hr Documented by: Prednisone (Deltasone -) 40 mg PO DAILY [facility] Last Admin: 08/08/19 09:25 Dose: 40 mg Documented by: - Objective Vital Signs: Vital Signs Temperature 101.2 F H 08/08/19 08:56 Pulse Rate 93 H 08/08/19 08:56 Respiratory Rate 20 08/08/19 09:00 Blood Pressure 117/78 08/08/19 08:56 O2 Sat by Pulse Oximetry (%) 98 08/08/19 09:00 Constitutional: Yes: No Distress, Calm Respiratory: Yes: Regular, Poor Air Entry Gastrointestinal: Yes: Normal Bowel Sounds, Soft Musculoskeletal: Yes: WNL Extremities: Yes: WNL Neurological: Yes: Alert, Oriented Psychiatric: Yes: Alert, Oriented Labs: CBC, BMP 08/07/19 05:56 08/07/19 05:56 Assessment/Plan Problem List - Problems (1) Coronavirus infection Code(s): B34.2 - CORONAVIRUS INFECTION, UNSPECIFIED (2) Asthma exacerbation Code(s): J45.901 - UNSPECIFIED ASTHMA WITH (ACUTE) EXACERBATION (3) Cough Code(s): R05 - COUGH plan continue current mgmt monitor fevers rest as per the team
[2019-08-08] MEDS: BUDESONIDE/FORMETEROL FUMARATE 80/4.5 mcg INHALER IH SCH ×2 (13:04→21:14)
[2019-08-08] MEDS: TIOTROPIUM BROMIDE 2.5 MCG (SPIRIVA) RESPIMAT INHALER IH SCH (13:04)
--- NOTE | 2019-08-08 23:37 | PN ---
Progress Note, Physician History of Present Illness: Pt uncomfortable Pt spiking temp to 102 w/ cough wc is productive - Current Medication List Current Medications: Active Medications Acetaminophen (Tylenol -) 650 mg PO Q4H PRN PRN Reason: FEVER Last Admin: 08/08/19 08:30 Dose: 650 mg Documented by: Albuterol Sulfate (Ventolin 0.083% Nebulizer Soln -) 1 amp NEB Q15M PRN PRN Reason: Dyspnea Albuterol Sulfate (Ventolin 0.083% Nebulizer Soln -) 1 amp NEB RQ4H PRN PRN Reason: SHORT OF BREATH/WHEEZING Budesonide/Formoterol Fumarate (Symbicort 80/4.5mcg -) 2 puff IH BID [facility] Last Admin: 08/08/19 21:14 Dose: 2 puff Documented by: Guaifenesin/Codeine Phosphate (Robitussin Ac -) 10 ml PO Q8H PRN PRN Reason: COUGH Heparin Sodium (Porcine) (Heparin -) 5,000 unit SQ BID [facility] Last Admin: 08/08/19 21:14 Dose: 5,000 unit Documented by: Ceftriaxone Sodium 1 gm/ (Dextrose) 50 mls @ 100 mls/hr IVPB DAILY [facility]; Protocol Last Admin: 08/08/19 09:28 Dose: 100 mls/hr Documented by: Prednisone (Deltasone -) 40 mg PO DAILY [facility] Last Admin: 08/08/19 09:25 Dose: 40 mg Documented by: Tiotropium [place] (Spiriva Respimat) 2 puff IH DAILY [facility] Last Admin: 08/08/19 13:04 Dose: 2 puff Documented by: - Objective Vital Signs: Vital Signs Temperature 100.0 F H 08/08/19 19:23 Pulse Rate 93 H 08/08/19 19:23 Respiratory Rate 20 08/08/19 09:00 Blood Pressure 117/78 08/08/19 08:56 O2 Sat by Pulse Oximetry (%) 98 08/08/19 09:00 Neck: Yes: WNL, Supple Cardiovascular: Yes: WNL, Regular Rate and Rhythm Respiratory: Yes: Diminished Gastrointestinal: Yes: WNL, Normal Bowel Sounds, Soft Labs: CBC, BMP 08/07/19 05:56 08/07/19 05:56 Problem List - Problems (1) Asthma exacerbation Assessment/Plan: Will cont iv ceftriaxone/zithro Cont inhalers Cont present dose of prednisone Code(s): J45.901 - UNSPECIFIED ASTHMA WITH (ACUTE) EXACERBATION (2) Fever Assessment/Plan: Due to jones virus Code(s): R50.9 - FEVER, UNSPECIFIED
[2019-08-09] MEDS: ACETAMINOPHEN 325 MG TABLET (FP) PO PRN ×2 (04:58→15:48)
[2019-08-09 07:24] LABS: BASO % 0.6 % (0-2.0); HEMATOCRIT 37.6 % (32.4-45.2); HEMOGLOBIN 12.3 GM/dL (10.7-15.3); LYMPH % 29.5 % (8-40); MCH 27.6 pg (25.7-33.7); MCHC 32.9 g/dl (32.0-36.0); MEAN CELL VOLUME 84.1 fl (80-96); MEAN PLT VOLUME 7.8 fl (7.5-11.1); MONO % 9.9 % (3.8-10.2); PLATELET COUNT 295 K/MM3 (134-434); RBC 4.46 M/mm3 (3.60-5.2); RDW 14.5 % (11.6-15.6); WHITE BLOOD COUNT 7.1 K/mm3 (4.0-10.0)
[2019-08-09 07:52] LABS: ALBUMIN 3.5 g/dl (3.4-5.0); BILIRUBIN,TOTAL 0.4 mg/dL (0.2-1); BLOOD UREA NITROGEN 13.2 mg/dL (7-18); CALCIUM 8.5 mg/dL (8.5-10.1); CREATININE 0.8 mg/dL (0.55-1.3); POTASSIUM 4.1 mmol/L (3.5-5.1); TOT PROT 7.9 g/dl (6.4-8.2)
[2019-08-09] MEDS ORDERED: cefTRIAXone SODIUM 1 GM VIAL ONE (08:58)
[2019-08-09] MEDS ORDERED: DEXTROSE 5%-WATER - 50 ML IVPB ONE (08:58)
[2019-08-09] MEDS: HEPARIN NA (PORCINE) 5,000 UNITS/ML 1ML VIAL SQ SCH ×2 (10:00→21:45)
[2019-08-09] MEDS: predniSONE 20 MG TABLET (UD) PO SCH (10:00)
[2019-08-09] MEDS: BUDESONIDE/FORMETEROL FUMARATE 80/4.5 mcg INHALER IH SCH ×2 (10:00→21:45)
[2019-08-09] MEDS: CEFTRIAXONE 1 GM in DEXTROSE 5%-WATER - 50 ML IVPB SCH (10:00)
[2019-08-09] MEDS: TIOTROPIUM BROMIDE 2.5 MCG (SPIRIVA) RESPIMAT INHALER IH SCH (10:00)
--- NOTE | 2019-08-09 10:30 | PN ---
Progress Note, Physician History of Present Illness: still coughing a lot dry cough spiked a fever - Current Medication List Current Medications: Active Medications Acetaminophen (Tylenol -) 650 mg PO Q4H PRN PRN Reason: FEVER Last Admin: 08/09/19 04:58 Dose: 650 mg Documented by: Albuterol Sulfate (Ventolin 0.083% Nebulizer Soln -) 1 amp NEB Q15M PRN PRN Reason: Dyspnea Albuterol Sulfate (Ventolin 0.083% Nebulizer Soln -) 1 amp NEB RQ4H PRN PRN Reason: SHORT OF BREATH/WHEEZING Budesonide/Formoterol Fumarate (Symbicort 80/4.5mcg -) 2 puff IH BID [facility] Last Admin: 08/08/19 21:14 Dose: 2 puff Documented by: Guaifenesin/Codeine Phosphate (Robitussin Ac -) 10 ml PO Q8H PRN PRN Reason: COUGH Heparin Sodium (Porcine) (Heparin -) 5,000 unit SQ BID [facility] Last Admin: 08/08/19 21:14 Dose: 5,000 unit Documented by: Ceftriaxone Sodium 1 gm/ (Dextrose) 50 mls @ 100 mls/hr IVPB DAILY [facility]; Protocol Last Admin: 08/08/19 09:28 Dose: 100 mls/hr Documented by: Prednisone (Deltasone -) 40 mg PO DAILY [facility] Last Admin: 08/08/19 09:25 Dose: 40 mg Documented by: Tiotropium [place] (Spiriva Respimat) 2 puff IH DAILY [facility] Last Admin: 08/08/19 13:04 Dose: 2 puff Documented by: - Objective Vital Signs: Vital Signs Temperature 99 F 08/09/19 08:03 Pulse Rate 74 08/09/19 08:03 Respiratory Rate 18 08/09/19 08:03 Blood Pressure 92/65 08/09/19 08:03 O2 Sat by Pulse Oximetry (%) 99 08/09/19 08:33 Constitutional: Yes: Calm, Mild Distress, Obese Eyes: Yes: Conjunctiva Clear Cardiovascular: Yes: S1, S2 Respiratory: Yes: Regular, Rhonchi Gastrointestinal: Yes: Normal Bowel Sounds, Soft Musculoskeletal: Yes: WNL Extremities: Yes: WNL Neurological: Yes: Alert, Oriented Psychiatric: Yes: Alert, Oriented Labs: CBC, BMP 08/09/19 06:10 08/09/19 06:10 Assessment/Plan Problem List - Problems (1) Coronavirus infection Code(s): B34.2 - CORONAVIRUS INFECTION, UNSPECIFIED (2) Asthma exacerbation Code(s): J45.901 - UNSPECIFIED ASTHMA WITH (ACUTE) EXACERBATION (3) Cough Code(s): R05 - COUGH plan continue current mgmt monitor fevers rest as per the team abx incentive alma
[2019-08-09] MEDS: AZITHROMYCIN 250 MG TABLET PO SCH (11:00)
--- NOTE | 2019-08-09 11:35 | PN ---
Progress Note (short form) - Note Progress Note: PULMONARY Still some shortness of breath, persistent nonproductive cough. Febrile overnight. Vital Signs Period Temp Pulse Resp BP Sys/Orozco Pulse Ox Last 24 Hr 98.0 F-102.1 F 74-107 18-20 92-129/59-65 97-99 Gen: frequent cough Heart: RRR Lung: decreased breath sounds at the bases, no wheezes Abd: soft, nontender Ext: no edema CBC, BMP 08/09/19 06:10 08/09/19 06:10 Active Medications Acetaminophen (Tylenol -) 650 mg PO Q4H PRN PRN Reason: FEVER Last Admin: 08/09/19 04:58 Dose: 650 mg Documented by: Albuterol Sulfate (Ventolin 0.083% Nebulizer Soln -) 1 amp NEB Q15M PRN PRN Reason: Dyspnea Albuterol Sulfate (Ventolin 0.083% Nebulizer Soln -) 1 amp NEB RQ4H PRN PRN Reason: SHORT OF BREATH/WHEEZING Azithromycin (Zithromax -) 500 mg PO DAILY [facility] Stop: 08/11/19 10:01 Budesonide/Formoterol Fumarate (Symbicort 80/4.5mcg -) 2 puff IH BID [facility] Last Admin: 08/09/19 10:00 Dose: 2 puff Documented by: Guaifenesin/Codeine Phosphate (Robitussin Ac -) 10 ml PO Q8H PRN PRN Reason: COUGH Heparin Sodium (Porcine) (Heparin -) 5,000 unit SQ BID [facility] Last Admin: 08/09/19 10:00 Dose: 5,000 unit Documented by: Ceftriaxone Sodium 1 gm/ (Dextrose) 50 mls @ 100 mls/hr IVPB DAILY [facility]; Protocol Last Admin: 08/09/19 10:00 Dose: 100 mls/hr Documented by: Prednisone (Deltasone -) 40 mg PO DAILY [facility] Last Admin: 08/09/19 10:00 Dose: 40 mg Documented by: Tiotropium [place] (Spiriva Respimat) 2 puff IH DAILY [facility] Last Admin: 08/09/19 10:00 Dose: 2 puff Documented by: A/P COVID-19 Infection Acute Asthma Exacerbation - continue antibiotics - continue prednisone - cough suppressants - O2 to keep SpO2 >90% - DVT prophylaxis
[2019-08-09] MEDS: guaiFENesin/CODEINE 10 ML UNIT-DOSE CUPS PO PRN (15:48)
[2019-08-09] MEDS: DEXTROSE 5%-0.45% SALINE 1,000 ML IV SCH (18:42)
--- NOTE | 2019-08-09 21:26 | PN ---
Progress Note, Physician History of Present Illness: Tmax 100.6 - Current Medication List Current Medications: Active Medications Acetaminophen (Tylenol -) 650 mg PO Q4H PRN PRN Reason: FEVER Last Admin: 08/09/19 15:48 Dose: 650 mg Documented by: Albuterol Sulfate (Ventolin 0.083% Nebulizer Soln -) 1 amp NEB Q15M PRN PRN Reason: Dyspnea Albuterol Sulfate (Ventolin 0.083% Nebulizer Soln -) 1 amp NEB RQ4H PRN PRN Reason: SHORT OF BREATH/WHEEZING Azithromycin (Zithromax -) 500 mg PO DAILY [facility] Stop: 08/11/19 10:01 Last Admin: 08/09/19 11:00 Dose: 500 mg Documented by: Budesonide/Formoterol Fumarate (Symbicort 80/4.5mcg -) 2 puff IH BID [facility] Last Admin: 08/09/19 10:00 Dose: 2 puff Documented by: Guaifenesin/Codeine Phosphate (Robitussin Ac -) 10 ml PO Q8H PRN PRN Reason: COUGH Last Admin: 08/09/19 15:48 Dose: 10 ml Documented by: Heparin Sodium (Porcine) (Heparin -) 5,000 unit SQ BID [facility] Last Admin: 08/09/19 10:00 Dose: 5,000 unit Documented by: Ceftriaxone Sodium 1 gm/ (Dextrose) 50 mls @ 100 mls/hr IVPB DAILY [facility]; Protocol Last Admin: 08/09/19 10:00 Dose: 100 mls/hr Documented by: Dextrose/Sodium Chloride (D5-1/2ns -) 1,000 mls @ 75 mls/hr IV ASDIR [facility] Last Admin: 08/09/19 18:42 Dose: 75 mls/hr Documented by: Prednisone (Deltasone -) 40 mg PO DAILY [facility] Last Admin: 08/09/19 10:00 Dose: 40 mg Documented by: Tiotropium [place] (Spiriva Respimat) 2 puff IH DAILY [facility] Last Admin: 08/09/19 10:00 Dose: 2 puff Documented by: - Objective Vital Signs: Vital Signs Temperature 99.5 F 08/09/19 18:40 Pulse Rate 84 08/09/19 18:40 Respiratory Rate 18 08/09/19 18:40 Blood Pressure 95/64 08/09/19 18:40 O2 Sat by Pulse Oximetry (%) 99 08/09/19 08:33 Neck: Yes: WNL, Supple Cardiovascular: Yes: Tachycardia Respiratory: Yes: Diminished Gastrointestinal: Yes: WNL, Normal Bowel Sounds, Soft Labs: CBC, BMP 08/09/19 06:10 08/09/19 06:10 Problem List - Problems (1) Asthma exacerbation Assessment/Plan: Will cont iv ceftriaxone/zithro Cont inhalers Cont present dose of prednisone Code(s): J45.901 - UNSPECIFIED ASTHMA WITH (ACUTE) EXACERBATION (2) Fever Assessment/Plan: Due to jones virus. Pt was slightly hypotensive and therefore IVF was started Cont to monitor Check labs in am Code(s): R50.9 - FEVER, UNSPECIFIED
[2019-08-10 07:37] LABS: BASO % 0.7 % (0-2.0); HEMATOCRIT 36.2 % (32.4-45.2); HEMOGLOBIN 12.1 GM/dL (10.7-15.3); MCHC 33.5 g/dl (32.0-36.0); MEAN CELL VOLUME 83.7 fl (80-96); MEAN PLT VOLUME 7.9 fl (7.5-11.1); MONO % 17.8 % (3.8-10.2); NEUT % 37.5 % (42.8-82.8); PLATELET COUNT 269 K/MM3 (134-434); RBC 4.33 M/mm3 (3.60-5.2); RDW 14.1 % (11.6-15.6); WHITE BLOOD COUNT 4.9 K/mm3 (4.0-10.0)
[2019-08-10 08:13] LABS: ALBUMIN 3.2 g/dl (3.4-5.0); BILIRUBIN,TOTAL 0.4 mg/dL (0.2-1); BLOOD UREA NITROGEN 10.2 mg/dL (7-18); CALCIUM 8.1 mg/dL (8.5-10.1); CREATININE 0.8 mg/dL (0.55-1.3); POTASSIUM 4.1 mmol/L (3.5-5.1); TOT PROT 7.5 g/dl (6.4-8.2)
[2019-08-10] MEDS ORDERED: cefTRIAXone SODIUM 1 GM VIAL ONE (09:46)
[2019-08-10] MEDS ORDERED: DEXTROSE 5%-WATER - 50 ML IVPB ONE (09:46)
[2019-08-10] MEDS: CEFTRIAXONE 1 GM in DEXTROSE 5%-WATER - 50 ML IVPB SCH (10:08)
[2019-08-10] MEDS: AZITHROMYCIN 250 MG TABLET PO SCH (10:08)
[2019-08-10] MEDS: predniSONE 20 MG TABLET (UD) PO SCH (10:08)
[2019-08-10] MEDS: guaiFENesin/CODEINE 10 ML UNIT-DOSE CUPS PO PRN (10:08)
[2019-08-10] MEDS: HEPARIN NA (PORCINE) 5,000 UNITS/ML 1ML VIAL SQ SCH ×2 (10:08→21:18)
[2019-08-10] MEDS: ACETAMINOPHEN 325 MG TABLET (FP) PO PRN (10:09)
[2019-08-10] MEDS: BUDESONIDE/FORMETEROL FUMARATE 80/4.5 mcg INHALER IH SCH ×2 (10:09→21:18)
[2019-08-10] MEDS: DEXTROSE 5%-0.45% SALINE 1,000 ML IV SCH (10:09)
[2019-08-10] MEDS: TIOTROPIUM BROMIDE 2.5 MCG (SPIRIVA) RESPIMAT INHALER IH SCH (10:09)
[2019-08-10] MEDS ORDERED: ALBUTEROL SO4 HFA INHALER IH PRN (10:11)
--- NOTE | 2019-08-10 10:11 | PN ---
Progress Note (short form) - Note Progress Note: PULMONARY States breathing slightly improved, still with persistent nonproductive cough. Fever curve trending down. Vital Signs Period Temp Pulse Resp BP Sys/Orozco Pulse Ox Last 24 Hr 97.9 F-100.6 F 70-103 18-18 90-103/49-68 95-95 Gen: frequent cough Heart: RRR Lung: decreased breath sounds at the bases, no wheezes Abd: soft, nontender Ext: no edema CBC, BMP 08/10/19 06:35 08/10/19 06:35 Active Medications Acetaminophen (Tylenol -) 650 mg PO Q4H PRN PRN Reason: FEVER Last Admin: 08/09/19 15:48 Dose: 650 mg Documented by: Albuterol Sulfate (Ventolin 0.083% Nebulizer Soln -) 1 amp NEB Q15M PRN PRN Reason: Dyspnea Albuterol Sulfate (Ventolin 0.083% Nebulizer Soln -) 1 amp NEB RQ4H PRN PRN Reason: SHORT OF BREATH/WHEEZING Azithromycin (Zithromax -) 500 mg PO DAILY [facility] Stop: 08/11/19 10:01 Last Admin: 08/09/19 11:00 Dose: 500 mg Documented by: Budesonide/Formoterol Fumarate (Symbicort 80/4.5mcg -) 2 puff IH BID [facility] Last Admin: 08/09/19 21:45 Dose: 2 puff Documented by: Guaifenesin/Codeine Phosphate (Robitussin Ac -) 10 ml PO Q8H PRN PRN Reason: COUGH Last Admin: 08/09/19 15:48 Dose: 10 ml Documented by: Heparin Sodium (Porcine) (Heparin -) 5,000 unit SQ BID [facility] Last Admin: 08/09/19 21:45 Dose: 5,000 unit Documented by: Ceftriaxone Sodium 1 gm/ (Dextrose) 50 mls @ 100 mls/hr IVPB DAILY [facility]; Prot ocol Last Admin: 08/09/19 10:00 Dose: 100 mls/hr Documented by: Dextrose/Sodium Chloride (D5-1/2ns -) 1,000 mls @ 75 mls/hr IV ASDIR [facility] Last Admin: 08/09/19 18:42 Dose: 75 mls/hr Documented by: Prednisone (Deltasone -) 40 mg PO DAILY [facility] Last Admin: 08/09/19 10:00 Dose: 40 mg Documented by: Tiotropium [place] (Spiriva Respimat) 2 puff IH DAILY [facility] Last Admin: 08/09/19 10:00 Dose: 2 puff Documented by: A/P COVID-19 Infection Acute Asthma Exacerbation - continue antibiotics - continue prednisone - cough suppressants - O2 to keep SpO2 >90% - DVT prophylaxis - if dyspnea continues to improve, can consider d/c home in AM
--- NOTE | 2019-08-10 10:48 | EKG ---
Test Reason : Blood Pressure : / mmHG Vent. Rate : 072 BPM Atrial Rate : 072 BPM P-R Int : 166 ms QRS Dur : 086 ms QT Int : 380 ms P-R-T Axes : 063 -07 004 degrees QTc Int : 416 ms NORMAL SINUS RHYTHM EARLY REPOLARIZATION WHEN COMPARED WITH ECG OF 02-AUG-2010 11:50, NO SIGNIFICANT CHANGE WAS FOUND Confirmed by ANG MURCIA MD ([id number]) on 08/10/2019 10:47:33 AM Referred By: KARSON Confirmed By:ANG MURCIA MD
[2019-08-10] MEDS: LACTOBACILLUS ACIDOPHILUS 1 TABLET PO SCH (11:49)
--- NOTE | 2019-08-10 12:20 | PN ---
Progress Note, Physician History of Present Illness: stable no new issues - Current Medication List Current Medications: Active Medications Acetaminophen (Tylenol -) 650 mg PO Q4H PRN PRN Reason: FEVER Last Admin: 08/10/19 10:09 Dose: 650 mg Documented by: Albuterol Sulfate (Ventolin Hfa Inhaler -) 2 puff IH Q4H PRN PRN Reason: SHORT OF BREATH/WHEEZING Azithromycin (Zithromax -) 500 mg PO DAILY [facility] Stop: 08/11/19 10:01 Last Admin: 08/10/19 10:08 Dose: 500 mg Documented by: Budesonide/Formoterol Fumarate (Symbicort 80/4.5mcg -) 2 puff IH BID [facility] Last Admin: 08/10/19 10:09 Dose: 2 puff Documented by: Guaifenesin/Codeine Phosphate (Robitussin Ac -) 10 ml PO Q8H PRN PRN Reason: COUGH Last Admin: 08/10/19 10:08 Dose: 10 ml Documented by: Heparin Sodium (Porcine) (Heparin -) 5,000 unit SQ BID [facility] Last Admin: 08/10/19 10:08 Dose: 5,000 unit Documented by: Ceftriaxone Sodium 1 gm/ (Dextrose) 50 mls @ 100 mls/hr IVPB DAILY [facility]; Protocol Last Admin: 08/10/19 10:08 Dose: 100 mls/hr Documented by: Dextrose/Sodium Chloride (D5-1/2ns -) 1,000 mls @ 75 mls/hr IV ASDIR [facility] Last Admin: 08/10/19 10:09 Dose: 75 mls/hr Documented by: Lactobacillus Acidophilus (Bacid -) 1 tab PO DAILY [facility] Last Admin: 08/10/19 11:49 Dose: 1 tab Documented by: Prednisone (Deltasone -) 40 mg PO DAILY [facility] Last Admin: 08/10/19 10:08 Dose: 40 mg Documented by: Tiotropium [place] (Spiriva Respimat) 2 puff IH DAILY [facility] Last Admin: 08/10/19 10:09 Dose: 2 puff Documented by: - Objective Vital Signs: Vital Signs Temperature 98.4 F 08/10/19 08:48 Pulse Rate 85 08/10/19 08:48 Respiratory Rate 18 08/10/19 08:48 Blood Pressure 90/60 03/27/20 08:48 O2 Sat by Pulse Oximetry (%) 95 08/09/19 22:00 Constitutional: Yes: No Distress, Calm Cardiovascular: Yes: S1, S2 Respiratory: Yes: Regular, CTA Bilaterally Gastrointestinal: Yes: Normal Bowel Sounds, Soft Musculoskeletal: Yes: WNL Extremities: Yes: Other Neurological: Yes: Alert, Oriented Psychiatric: Yes: Alert, Oriented Labs: CBC, BMP 08/10/19 06:35 08/10/19 06:35 Assessment/Plan Problem List - Problems (1) Coronavirus infection Code(s): B34.2 - CORONAVIRUS INFECTION, UNSPECIFIED (2) Asthma exacerbation Code(s): J45.901 - UNSPECIFIED ASTHMA WITH (ACUTE) EXACERBATION (3) Cough Code(s): R05 - COUGH plan continue current mgmt monitor fevers rest as per the team abx incentive alma
--- NOTE | 2019-08-10 20:15 | PN ---
Progress Note, Physician - Current Medication List Current Medications: Active Medications Acetaminophen (Tylenol -) 650 mg PO Q4H PRN PRN Reason: FEVER Last Admin: 08/10/19 10:09 Dose: 650 mg Documented by: Albuterol Sulfate (Ventolin Hfa Inhaler -) 2 puff IH Q4H PRN PRN Reason: SHORT OF BREATH/WHEEZING Azithromycin (Zithromax -) 500 mg PO DAILY [facility] Stop: 08/11/19 10:01 Last Admin: 08/10/19 10:08 Dose: 500 mg Documented by: Budesonide/Formoterol Fumarate (Symbicort 80/4.5mcg -) 2 puff IH BID [facility] Last Admin: 08/10/19 10:09 Dose: 2 puff Documented by: Guaifenesin/Codeine Phosphate (Robitussin Ac -) 10 ml PO Q8H PRN PRN Reason: COUGH Last Admin: 08/10/19 10:08 Dose: 10 ml Documented by: Heparin Sodium (Porcine) (Heparin -) 5,000 unit SQ BID [facility] Last Admin: 08/10/19 10:08 Dose: 5,000 unit Documented by: Ceftriaxone Sodium 1 gm/ (Dextrose) 50 mls @ 100 mls/hr IVPB DAILY [facility]; Prot ocol Last Admin: 08/10/19 10:08 Dose: 100 mls/hr Documented by: Dextrose/Sodium Chloride (D5-1/2ns -) 1,000 mls @ 75 mls/hr IV ASDIR [facility]EE Last Admin: 08/10/19 10:09 Dose: 75 mls/hr Documented by: Lactobacillus Acidophilus (Bacid -) 1 tab PO DAILY [facility] Last Admin: 08/10/19 11:49 Dose: 1 tab Documented by: Prednisone (Deltasone -) 40 mg PO DAILY [facility] Last Admin: 08/10/19 10:08 Dose: 40 mg Documented by: Tiotropium [place] (Spiriva Respimat) 2 puff IH DAILY [facility] Last Admin: 08/10/19 10:09 Dose: 2 puff Documented by: - Objective Vital Signs: Vital Signs Temperature 98.3 F 08/10/19 15:14 Pulse Rate 87 08/10/19 15:14 Respiratory Rate 18 08/10/19 15:14 Blood Pressure 93/52 L 08/10/19 15:14 O2 Sat by Pulse Oximetry (%) 99 08/10/19 10:00 Labs: CBC, BMP 08/10/19 06:35 08/10/19 06:35 Problem List - Problems (1) Asthma exacerbation Code(s): J45.901 - UNSPECIFIED ASTHMA WITH (ACUTE) EXACERBATION (2) Fever Code(s): R50.9 - FEVER, UNSPECIFIED
[2019-08-11] MEDS: ACETAMINOPHEN 325 MG TABLET (FP) PO PRN ×3 (06:00→17:13)
[2019-08-11] MEDS: guaiFENesin/CODEINE 10 ML UNIT-DOSE CUPS PO PRN ×2 (10:24→17:13)
[2019-08-11] MEDS: predniSONE 20 MG TABLET (UD) PO SCH (10:24)
[2019-08-11] MEDS: LACTOBACILLUS ACIDOPHILUS 1 TABLET PO SCH (10:24)
[2019-08-11] MEDS: AZITHROMYCIN 250 MG TABLET PO SCH (10:24)
[2019-08-11] MEDS: TIOTROPIUM BROMIDE 2.5 MCG (SPIRIVA) RESPIMAT INHALER IH SCH (10:25)
[2019-08-11] MEDS: CEFTRIAXONE 1 GM in DEXTROSE 5%-WATER - 50 ML IVPB SCH (10:25)
[2019-08-11] MEDS: HEPARIN NA (PORCINE) 5,000 UNITS/ML 1ML VIAL SQ SCH ×2 (10:25→21:17)
[2019-08-11] MEDS: BUDESONIDE/FORMETEROL FUMARATE 80/4.5 mcg INHALER IH SCH ×2 (10:25→21:18)
[2019-08-11] MEDS ORDERED: AZITHROMYCIN 250 MG TABLET PO ONE (13:08)
--- NOTE | 2019-08-11 13:20 | PN ---
Progress Note, Physician History of Present Illness: Pt is alert, stating she is feeling better but still has dry cough. Fevers have resolved. Sitting in chair, without other specific complaints. - Current Medication List Current Medications: Active Medications Acetaminophen (Tylenol -) 650 mg PO Q4H PRN PRN Reason: FEVER Last Admin: 08/11/19 10:24 Dose: 650 mg Documented by: Albuterol Sulfate (Ventolin Hfa Inhaler -) 2 puff IH Q4H PRN PRN Reason: SHORT OF BREATH/WHEEZING Azithromycin (Zithromax -) 500 mg PO ONCE ONE Stop: 08/11/19 13:09 Budesonide/Formoterol Fumarate (Symbicort 80/4.5mcg -) 2 puff IH BID [facility] Last Admin: 08/11/19 10:25 Dose: 2 puff Documented by: Guaifenesin/Codeine Phosphate (Robitussin Ac -) 10 ml PO Q8H PRN PRN Reason: COUGH Last Admin: 08/11/19 10:24 Dose: 10 ml Documented by: Heparin Sodium (Porcine) (Heparin -) 5,000 unit SQ BID [facility] Last Admin: 08/11/19 10:25 Dose: 5,000 unit Documented by: Dextrose/Sodium Chloride (D5-1/2ns -) 1,000 mls @ 75 mls/hr IV ASDIR [facility] Last Admin: 08/10/19 10:09 Dose: 75 mls/hr Documented by: Lactobacillus Acidophilus (Bacid -) 1 tab PO DAILY [facility] Last Admin: 08/11/19 10:24 Dose: 1 tab Documented by: Prednisone (Deltasone -) 40 mg PO DAILY [facility] Last Admin: 08/11/19 10:24 Dose: 40 mg Documented by: Tiotropium [place] (Spiriva Respimat) 2 puff IH DAILY [facility] Last Admin: 08/11/19 10:25 Dose: 2 puff Documented by: - Objective Vital Signs: Vital Signs Temperature 98.3 F 08/11/19 11:06 Pulse Rate 77 08/11/19 11:06 Respiratory Rate 18 08/11/19 11:06 Blood Pressure 132/65 08/11/19 11:06 O2 Sat by Pulse Oximetry (%) 98 08/10/19 21:00 Constitutional: Yes: No Distress, Calm Cardiovascular: Yes: Regular Rate and Rhythm Respiratory: Yes: Diminished (slight decreased BS at bases) Gastrointestinal: Yes: Normal Bowel Sounds, Soft Genitourinary: Yes: WNL Musculoskeletal: Yes: WNL Extremities: Yes: WNL Edema: No Peripheral Pulses WNL: Yes Integumentary: Yes: WNL Neurological: Yes: Alert, Oriented Psychiatric: Yes: Alert Labs: CBC, BMP 08/10/19 06:35 08/10/19 06:35 Laboratory Last Values WBC 4.9 K/mm3 (4.0-10.0) 08/10/19 06:35 RBC 4.33 M/mm3 (3.60-5.2) 08/10/19 06:35 Hgb 12.1 GM/dL (10.7-15.3) 08/10/19 06:35 Hct 36.2 % (32.4-45.2) 08/10/19 06:35 MCV 83.7 fl (80-96) 08/10/19 06:35 MCH 28.0 pg (25.7-33.7) 08/10/19 06:35 MCHC 33.5 g/dl (32.0-36.0) 08/10/19 06:35 RDW 14.1 % (11.6-15.6) 08/10/19 06:35 Plt Count 269 K/MM3 (134-434) 08/10/19 06:35 MPV 7.9 fl (7.5-11.1) 08/10/19 06:35 Absolute Neuts (auto) 1.9 K/mm3 (1.5-8.0) 08/10/19 06:35 Neutrophils % 37.5 % (42.8-82.8) L D 08/10/19 06:35 Lymphocytes % 43.0 % (8-40) H D 08/10/19 06:35 Monocytes % 17.8 % (3.8-10.2) H 08/10/19 06:35 Eosinophils % 1.0 % (0-4.5) D 08/10/19 06:35 Basophils % 0.7 % (0-2.0) 08/10/19 06:35 Nucleated RBC % 0 % (0-0) 08/10/19 06:35 Sodium 136 mmol/L (136-145) 08/10/19 06:35 Potassium 4.1 mmol/L (3.5-5.1) 08/10/19 06:35 Chloride 107 mmol/L (98-107) 08/10/19 06:35 Carbon Dioxide 24 mmol/L (21-32) 08/10/19 06:35 Anion Gap 6 MMOL/L (8-16) L 08/10/19 06:35 BUN 10.2 mg/dL (7-18) 08/10/19 06:35 Creatinine 0.8 mg/dL (0.55-1.3) 08/10/19 06:35 Est GFR (CKD-EPI)AfAm 102.47 08/10/19 06:35 Est GFR (CKD-EPI)NonAf 88.41 08/10/19 06:35 Random Glucose 89 mg/dL (74-106) 08/10/19 06:35 Calcium 8.1 mg/dL (8.5-10.1) L 08/10/19 06:35 Phosphorus 3.7 mg/dL (2.5-4.9) 08/06/19 22:15 Phosphorus Cancelled 08/06/19 22:15 Magnesium 2.9 mg/dL (1.8-2.4) H 08/06/19 22:15 Magnesium Cancelled 08/06/19 22:15 Total Bilirubin 0.4 mg/dL (0.2-1) 08/10/19 06:35 AST 14 U/L (15-37) L 08/10/19 06:35 ALT 15 U/L (13-61) 08/10/19 06:35 Alkaline Phosphatase 68 U/L (45-117) 08/10/19 06:35 Total Protein 7.5 g/dl (6.4-8.2) 08/10/19 06:35 Albumin 3.2 g/dl (3.4-5.0) L 08/10/19 06:35 - ....Imaging Chest X-ray: Report Reviewed Problem List - Problems (1) Coronavirus infection Code(s): B34.2 - CORONAVIRUS INFECTION, UNSPECIFIED (2) Asthma exacerbation Code(s): J45.901 - UNSPECIFIED ASTHMA WITH (ACUTE) EXACERBATION (3) Morbid obesity Code(s): E66.01 - MORBID (SEVERE) OBESITY DUE TO EXCESS CALORIES Assessment/Plan -- Fevers resolved, improving but still with dry cough -- no current IV access, will d/c current IV antibiotics, order 1 more dose of Azithromycin PO -- Pulmonary following vitals currently stable, without acute distress
--- NOTE | 2019-08-11 13:23 | PN ---
Progress Note (short form) - Note Progress Note: PULMONARY States breathing slightly improved, less cough. No fevers. c/o left calf cramping. Vital Signs Period Temp Pulse Resp BP Sys/Orozco Pulse Ox Last 24 Hr 98.1 F-98.5 F 66-87 18-18 83-132/40-67 98 Gen: frequent cough Heart: RRR Lung: decreased breath sounds at the bases, no wheezes Abd: soft, nontender Ext: no edema CBC, BMP 08/10/19 06:35 08/10/19 06:35 Active Medications Acetaminophen (Tylenol -) 650 mg PO Q4H PRN PRN Reason: FEVER Last Admin: 08/11/19 10:24 Dose: 650 mg Documented by: Albuterol Sulfate (Ventolin Hfa Inhaler -) 2 puff IH Q4H PRN PRN Reason: SHORT OF BREATH/WHEEZING Budesonide/Formoterol Fumarate (Symbicort 80/4.5mcg -) 2 puff IH BID [facility] Last Admin: 08/11/19 10:25 Dose: 2 puff Documented by: Guaifenesin/Codeine Phosphate (Robitussin Ac -) 10 ml PO Q8H PRN PRN Reason: COUGH Last Admin: 08/11/19 10:24 Dose: 10 ml Documented by: Heparin Sodium (Porcine) (Heparin -) 5,000 unit SQ BID [facility] Last Admin: 08/11/19 10:25 Dose: 5,000 unit Documented by: Dextrose/Sodium Chloride (D5-1/2ns -) 1,000 mls @ 75 mls/hr IV ASDIR [facility] Last Admin: 08/10/19 10:09 Dose: 75 mls/hr Documented by: Lactobacillus Acidophilus (Bacid -) 1 tab PO DAILY [facility] Last Admin: 08/11/19 10:24 Dose: 1 tab Documented by: Prednisone (Deltasone -) 40 mg PO DAILY [facility] Last Admin: 08/11/19 10:24 Dose: 40 mg Documented by: Tiotropium [place] (Spiriva Respimat) 2 puff IH DAILY [facility] Last Admin: 08/11/19 10:25 Dose: 2 puff Documented by: A/P COVID-19 Infection Acute Asthma Exacerbation - check LE dopplers - continue antibiotics - continue prednisone - cough suppressants - O2 to keep SpO2 >90% - DVT prophylaxis - if dyspnea continues to improve, can consider d/c home in AM
[2019-08-11] MEDS: DEXTROSE 5%-0.45% SALINE 1,000 ML IV SCH (14:45)
--- NOTE | 2019-08-11 23:30 | PN ---
Progress Note, Physician - Current Medication List Current Medications: Active Medications Acetaminophen (Tylenol -) 650 mg PO Q4H PRN PRN Reason: FEVER Last Admin: 08/11/19 10:24 Dose: 650 mg Documented by: Albuterol Sulfate (Ventolin Hfa Inhaler -) 2 puff IH Q4H PRN PRN Reason: SHORT OF BREATH/WHEEZING Budesonide/Formoterol Fumarate (Symbicort 80/4.5mcg -) 2 puff IH BID [facility] Last Admin: 08/11/19 21:18 Dose: 2 puff Documented by: Guaifenesin/Codeine Phosphate (Robitussin Ac -) 10 ml PO Q8H PRN PRN Reason: COUGH Last Admin: 08/11/19 10:24 Dose: 10 ml Documented by: Heparin Sodium (Porcine) (Heparin -) 5,000 unit SQ BID [facility] Last Admin: 08/11/19 21:17 Dose: 5,000 unit Documented by: Lactobacillus Acidophilus (Bacid -) 1 tab PO DAILY [facility] Last Admin: 08/11/19 10:24 Dose: 1 tab Documented by: Prednisone (Deltasone -) 40 mg PO DAILY [facility] Last Admin: 08/11/19 10:24 Dose: 40 mg Documented by: Tiotropium [place] (Spiriva Respimat) 2 puff IH DAILY [facility] Last Admin: 08/11/19 10:25 Dose: 2 puff Documented by: - Objective Vital Signs: Vital Signs Temperature 98.3 F 08/11/19 17:31 Pulse Rate 80 08/11/19 17:31 Respiratory Rate 16 08/11/19 17:31 Blood Pressure 96/57 L 08/11/19 17:31 O2 Sat by Pulse Oximetry (%) 98 08/11/19 10:00 Labs: CBC, BMP 08/10/19 06:35 08/10/19 06:35 Problem List - Problems (1) Asthma exacerbation Code(s): J45.901 - UNSPECIFIED ASTHMA WITH (ACUTE) EXACERBATION (2) Fever Code(s): R50.9 - FEVER, UNSPECIFIED
[2019-08-12] MEDS: TIOTROPIUM BROMIDE 2.5 MCG (SPIRIVA) RESPIMAT INHALER IH SCH (10:17)
[2019-08-12] MEDS: LACTOBACILLUS ACIDOPHILUS 1 TABLET PO SCH (10:17)
[2019-08-12] MEDS: HEPARIN NA (PORCINE) 5,000 UNITS/ML 1ML VIAL SQ SCH ×2 (10:17→21:19)
[2019-08-12] MEDS: predniSONE 20 MG TABLET (UD) PO SCH (10:17)
[2019-08-12] MEDS: BUDESONIDE/FORMETEROL FUMARATE 80/4.5 mcg INHALER IH SCH ×2 (10:17→21:20)
--- NOTE | 2019-08-12 15:17 | PN ---
Progress Note (short form) - Note Progress Note: PULMONARY States breathing slowly improving, less cough. No fevers. Vital Signs Period Temp Pulse Resp BP Sys/Orozco Pulse Ox Last 24 Hr 97.8 F-98.4 F 62-80 16-20 96-124/55-75 99-99 Gen: frequent cough Heart: RRR Lung: decreased breath sounds at the bases, no wheezes Abd: soft, nontender Ext: no edema CBC, BMP 08/10/19 06:35 08/10/19 06:35 Active Medications Acetaminophen (Tylenol -) 650 mg PO Q4H PRN PRN Reason: FEVER Last Admin: 08/11/19 10:24 Dose: 650 mg Documented by: Albuterol Sulfate (Ventolin Hfa Inhaler -) 2 puff IH Q4H PRN PRN Reason: SHORT OF BREATH/WHEEZING Budesonide/Formoterol Fumarate (Symbicort 80/4.5mcg -) 2 puff IH BID [facility] Last Admin: 08/12/19 10:17 Dose: 2 puff Documented by: Guaifenesin/Codeine Phosphate (Robitussin Ac -) 10 ml PO Q8H PRN PRN Reason: COUGH Last Admin: 08/11/19 10:24 Dose: 10 ml Documented by: Heparin Sodium (Porcine) (Heparin -) 5,000 unit SQ BID [facility] Last Admin: 08/12/19 10:17 Dose: 5,000 unit Documented by: Lactobacillus Acidophilus (Bacid -) 1 tab PO DAILY [facility] Last Admin: 08/12/19 10:17 Dose: 1 tab Documented by: Prednisone (Deltasone -) 40 mg PO DAILY [facility] Last Admin: 08/12/19 10:17 Dose: 40 mg Documented by: Tiotropium [place] (Spiriva Respimat) 2 puff IH DAILY [facility] Last Admin: 08/12/19 10:17 Dose: 2 puff Documented by: A/P COVID-19 Infection Acute Asthma Exacerbation - continue antibiotics - can d/c prednisone - cough suppressants - O2 to keep SpO2 >90% - DVT prophylaxis - can d/c home from pulmonary standpoint
--- NOTE | 2019-08-12 18:27 | PN ---
Progress Note, Physician History of Present Illness: No new complaints - Current Medication List Current Medications: Active Medications Acetaminophen (Tylenol -) 650 mg PO Q4H PRN PRN Reason: FEVER Last Admin: 08/11/19 10:24 Dose: 650 mg Documented by: Albuterol Sulfate (Ventolin Hfa Inhaler -) 2 puff IH Q4H PRN PRN Reason: SHORT OF BREATH/WHEEZING Budesonide/Formoterol Fumarate (Symbicort 80/4.5mcg -) 2 puff IH BID [facility] Last Admin: 08/12/19 10:17 Dose: 2 puff Documented by: Guaifenesin/Codeine Phosphate (Robitussin Ac -) 10 ml PO Q8H PRN PRN Reason: COUGH Last Admin: 08/11/19 10:24 Dose: 10 ml Documented by: Heparin Sodium (Porcine) (Heparin -) 5,000 unit SQ BID [facility] Last Admin: 08/12/19 10:17 Dose: 5,000 unit Documented by: Lactobacillus Acidophilus (Bacid -) 1 tab PO DAILY [facility] Last Admin: 08/12/19 10:17 Dose: 1 tab Documented by: Tiotropium [place] (Spiriva Respimat) 2 puff IH DAILY [facility] Last Admin: 08/12/19 10:17 Dose: 2 puff Documented by: - Objective Vital Signs: Vital Signs Temperature 97.5 F L 08/12/19 17:25 Pulse Rate 82 08/12/19 17:25 Respiratory Rate 18 08/12/19 17:25 Blood Pressure 115/62 08/12/19 17:25 O2 Sat by Pulse Oximetry (%) 99 08/12/19 09:00 Neck: Yes: WNL, Supple Cardiovascular: Yes: WNL, Regular Rate and Rhythm Respiratory: Yes: Diminished Gastrointestinal: Yes: WNL, Normal Bowel Sounds, Soft Labs: CBC, BMP 08/10/19 06:35 08/10/19 06:35 Problem List - Problems (1) Fever Assessment/Plan: Due to jones virus. DC planning for am Code(s): R50.9 - FEVER, UNSPECIFIED (2) Asthma exacerbation Assessment/Plan: Antibx's dc'ed Cont inhalers Prednisone dc'ed DC planning for am Code(s): J45.901 - UNSPECIFIED ASTHMA WITH (ACUTE) EXACERBATION
--- NOTE | 2019-08-12 19:34 | PN ---
Progress Note, Physician History of Present Illness: Pt states she's feeling better. Fevers resolved, less SOB. Still some mild residual dry cough but breathing comfortably. - Current Medication List Current Medications: Active Medications Acetaminophen (Tylenol -) 650 mg PO Q4H PRN PRN Reason: FEVER Last Admin: 08/11/19 10:24 Dose: 650 mg Documented by: Albuterol Sulfate (Ventolin Hfa Inhaler -) 2 puff IH Q4H PRN PRN Reason: SHORT OF BREATH/WHEEZING Budesonide/Formoterol Fumarate (Symbicort 80/4.5mcg -) 2 puff IH BID [facility] Last Admin: 08/12/19 10:17 Dose: 2 puff Documented by: Guaifenesin/Codeine Phosphate (Robitussin Ac -) 10 ml PO Q8H PRN PRN Reason: COUGH Last Admin: 08/11/19 10:24 Dose: 10 ml Documented by: Heparin Sodium (Porcine) (Heparin -) 5,000 unit SQ BID [facility] Last Admin: 08/12/19 10:17 Dose: 5,000 unit Documented by: Lactobacillus Acidophilus (Bacid -) 1 tab PO DAILY [facility] Last Admin: 08/12/19 10:17 Dose: 1 tab Documented by: Tiotropium [place] (Spiriva Respimat) 2 puff IH DAILY [facility] Last Admin: 08/12/19 10:17 Dose: 2 puff Documented by: - Objective Vital Signs: Vital Signs Temperature 97.5 F L 08/12/19 17:25 Pulse Rate 82 08/12/19 17:25 Respiratory Rate 18 08/12/19 17:25 Blood Pressure 115/62 08/12/19 17:25 O2 Sat by Pulse Oximetry (%) 99 08/12/19 09:00 Constitutional: Yes: No Distress, Calm Cardiovascular: Yes: Regular Rate and Rhythm Respiratory: Yes: Regular Gastrointestinal: Yes: Normal Bowel Sounds, Soft, Abdomen, Obese Genitourinary: Yes: WNL Extremities: Yes: WNL Edema: No Integumentary: Yes: WNL Neurological: Yes: Alert, Oriented Labs: CBC, BMP 08/10/19 06:35 08/10/19 06:35 Laboratory Last Values WBC 4.9 K/mm3 (4.0-10.0) 08/10/19 06:35 RBC 4.33 M/mm3 (3.60-5.2) 08/10/19 06:35 Hgb 12.1 GM/dL (10.7-15.3) 08/10/19 06:35 Hct 36.2 % (32.4-45.2) 08/10/19 06:35 MCV 83.7 fl (80-96) 08/10/19 06:35 MCH 28.0 pg (25.7-33.7) 08/10/19 06:35 MCHC 33.5 g/dl (32.0-36.0) 08/10/19 06:35 RDW 14.1 % (11.6-15.6) 08/10/19 06:35 Plt Count 269 K/MM3 (134-434) 08/10/19 06:35 MPV 7.9 fl (7.5-11.1) 08/10/19 06:35 Absolute Neuts (auto) 1.9 K/mm3 (1.5-8.0) 08/10/19 06:35 Neutrophils % 37.5 % (42.8-82.8) L D 08/10/19 06:35 Lymphocytes % 43.0 % (8-40) H D 08/10/19 06:35 Monocytes % 17.8 % (3.8-10.2) H 08/10/19 06:35 Eosinophils % 1.0 % (0-4.5) D 08/10/19 06:35 Basophils % 0.7 % (0-2.0) 08/10/19 06:35 Nucleated RBC % 0 % (0-0) 08/10/19 06:35 Sodium 136 mmol/L (136-145) 08/10/19 06:35 Potassium 4.1 mmol/L (3.5-5.1) 08/10/19 06:35 Chloride 107 mmol/L (98-107) 08/10/19 06:35 Carbon Dioxide 24 mmol/L (21-32) 08/10/19 06:35 Anion Gap 6 MMOL/L (8-16) L 08/10/19 06:35 BUN 10.2 mg/dL (7-18) 08/10/19 06:35 Creatinine 0.8 mg/dL (0.55-1.3) 08/10/19 06:35 Est GFR (CKD-EPI)AfAm 102.47 08/10/19 06:35 Est GFR (CKD-EPI)NonAf 88.41 08/10/19 06:35 Random Glucose 89 mg/dL (74-106) 08/10/19 06:35 Calcium 8.1 mg/dL (8.5-10.1) L 08/10/19 06:35 Phosphorus 3.7 mg/dL (2.5-4.9) 08/06/19 22:15 Phosphorus Cancelled 08/06/19 22:15 Magnesium 2.9 mg/dL (1.8-2.4) H 08/06/19 22:15 Magnesium Cancelled 08/06/19 22:15 Total Bilirubin 0.4 mg/dL (0.2-1) 08/10/19 06:35 AST 14 U/L (15-37) L 08/10/19 06:35 ALT 15 U/L (13-61) 08/10/19 06:35 Alkaline Phosphatase 68 U/L (45-117) 08/10/19 06:35 Total Protein 7.5 g/dl (6.4-8.2) 08/10/19 06:35 Albumin 3.2 g/dl (3.4-5.0) L 08/10/19 06:35 - ....Imaging Ultrasound: Report Reviewed (LE neg DVT) Problem List - Problems (1) Coronavirus infection Code(s): B34.2 - CORONAVIRUS INFECTION, UNSPECIFIED (2) Asthma exacerbation Code(s): J45.901 - UNSPECIFIED ASTHMA WITH (ACUTE) EXACERBATION (3) Morbid obesity Code(s): E66.01 - MORBID (SEVERE) OBESITY DUE TO EXCESS CALORIES Assessment/Plan -- Fevers resolved, breathing comfortably -- s/p course of antibiotics -- would like to go home
[2019-08-13] MEDS: TIOTROPIUM BROMIDE 2.5 MCG (SPIRIVA) RESPIMAT INHALER IH SCH (09:40)
[2019-08-13] MEDS: HEPARIN NA (PORCINE) 5,000 UNITS/ML 1ML VIAL SQ SCH (09:40)
[2019-08-13] MEDS: BUDESONIDE/FORMETEROL FUMARATE 80/4.5 mcg INHALER IH SCH (09:40)
[2019-08-13] MEDS: LACTOBACILLUS ACIDOPHILUS 1 TABLET PO SCH (09:40)
[2019-08-13 12:26] VITALS: BP 119/77; PULSE 81
[2019-08-13 12:30] VITALS: TEMP 98.4
--- NOTE | 2019-08-13 13:35 | PN ---
Progress Note (short form) - Note Progress Note: PULMONARY USING STRICT PPE PROTOCOL, PATIENT EXAMINED IN ROOM APPEARS STABLE WANTS TO GO HOME Vss/afebrile Gen: frequent cough Heart: RRR Lung: decreased breath sounds at the bases, no wheezes Abd: soft, nontender Ext: no edema labs/meds/notes/images reviewed A/P COVID-19 Infection Acute Asthma Exacerbation resolved - can d/c prednisone - cough suppressants - Bronchodilators - can d/c home from pulmonary standpoint R ALLYSON WARNER Problem List - Problems (1) Coronavirus infection Code(s): B34.2 - CORONAVIRUS INFECTION, UNSPECIFIED (2) Asthma exacerbation Code(s): J45.901 - UNSPECIFIED ASTHMA WITH (ACUTE) EXACERBATION (3) Cough Code(s): R05 - COUGH
--- NOTE | 2019-08-13 13:36 | PN ---
Progress Note, Physician History of Present Illness: stable much better breathing normally - Current Medication List Current Medications: Active Medications Acetaminophen (Tylenol -) 650 mg PO Q4H PRN PRN Reason: FEVER Last Admin: 08/11/19 10:24 Dose: 650 mg Documented by: Albuterol Sulfate (Ventolin Hfa Inhaler -) 2 puff IH Q4H PRN PRN Reason: SHORT OF BREATH/WHEEZING Budesonide/Formoterol Fumarate (Symbicort 80/4.5mcg -) 2 puff IH BID [facility] Last Admin: 08/13/19 09:40 Dose: 2 puff Documented by: Heparin Sodium (Porcine) (Heparin -) 5,000 unit SQ BID [facility] Last Admin: 08/13/19 09:40 Dose: 5,000 unit Documented by: Lactobacillus Acidophilus (Bacid -) 1 tab PO DAILY [facility] Last Admin: 08/13/19 09:40 Dose: 1 tab Documented by: Tiotropium [place] (Spiriva Respimat) 2 puff IH DAILY [facility] Last Admin: 08/13/19 09:40 Dose: 2 puff Documented by: - Objective Vital Signs: Vital Signs Temperature 98.4 F 08/13/19 12:26 Pulse Rate 81 08/13/19 12:26 Respiratory Rate 18 08/13/19 12:26 Blood Pressure 119/77 08/13/19 12:26 O2 Sat by Pulse Oximetry (%) 99 08/13/19 09:00 Constitutional: Yes: No Distress, Calm Cardiovascular: Yes: S1, S2 Respiratory: Yes: Regular, CTA Bilaterally Gastrointestinal: Yes: Normal Bowel Sounds, Soft Musculoskeletal: Yes: WNL Extremities: Yes: WNL Neurological: Yes: Alert, Oriented Psychiatric: Yes: Alert, Oriented Labs: CBC, BMP 08/10/19 06:35 08/10/19 06:35 Assessment/Plan Problem List - Problems (1) Coronavirus infection Code(s): B34.2 - CORONAVIRUS INFECTION, UNSPECIFIED (2) Asthma exacerbation Code(s): J45.901 - UNSPECIFIED ASTHMA WITH (ACUTE) EXACERBATION (3) Cough Code(s): R05 - COUGH plan continue current mgmt rest as per the team
== END 2019-08-13 13:54 | disposition home or self-care (01) | DRG 141 ==
LOC: JER 19:38 → JERBED 20:21 → J4W 08-08 00:56 → J4S 08-08 20:57
PROVIDERS: ADMIT Internal Medicine; ATTEND Internal Medicine
DX: J45.901 Unspecified asthma with (acute) exacerbation (principal); E66.01 Morbid (severe) obesity due to excess calories; Z68.41 Body mass index [BMI] 40.0-44.9, adult; B97.29 Other coronavirus as the cause of diseases classified elsewhere; Z88.0 Allergy status to penicillin
CPT/HCPCS: 36415; 71045-TC-FY; 80053; 83735; 84100; 85025; 93005; 93010; 93970-TC; 99285-25; J1644

== ENCOUNTER 2020-06-13 19:27 | Emergency (ER) | payer OTHER ==
[2020-06-13 19:46] VITALS: BMI 44.1
[2020-06-13] MEDS ORDERED: ALBUTEROL SO4 2.5/IPRATROPIUM 0.5 INH SOL 3 ML VIAL.NEB. NEB ONE ×2 (19:46→20:27)
[2020-06-13] MEDS ORDERED: DEXAMETHASONE SOD PHOSPHATE 10 MG/1 ML VIAL ONE (19:58)
[2020-06-13] MEDS ORDERED: DEXAMETHASONE LIQUID 0.5 MG/5 ML PO ONE (19:58)
[2020-06-13] MEDS ORDERED: MAGNESIUM SULF 50% (8.12 MEQ/2 ML-1 GM VIAL) IVPB ONE (19:59)
[2020-06-13] MEDS ORDERED: MAGNESIUM SULFATE IN WATER 2 GM/50 ML IVPB IVPB ONE (20:00)
[2020-06-13] MEDS: ALBUTEROL SO4 2.5/IPRATROPIUM 0.5 INH SOL 3 ML VIAL.NEB. NEB SCH ×4 (20:07→21:02)
[2020-06-13] MEDS ORDERED: SODIUM CHLORIDE 0.9% 500 ML INFUS.BAG IV ONE (20:07)
[2020-06-13 20:47] LABS: BASO % 1.2 % (0-2.0); HEMATOCRIT 35.4 % (32.4-45.2); HEMOGLOBIN 11.8 GM/dL (10.7-15.3); LYMPH % 37.9 % (8-40); MCH 28.3 pg (25.7-33.7); MCHC 33.4 g/dl (32.0-36.0); MEAN CELL VOLUME 84.7 fl (80-96); MEAN PLT VOLUME 10.3 fl (7.5-11.1); MONO % 11.2 % (3.8-10.2); NEUT % 45.7 % (42.8-82.8); PLATELET COUNT 347 K/MM3 (134-434); RBC 4.18 M/mm3 (3.60-5.2); RDW 14.6 % (11.6-15.6); WHITE BLOOD COUNT 9.9 K/mm3 (4.0-10.0)
[2020-06-13 21:00] LABS: CHLORIDE 111 mmol/L (98-107); SODIUM 140 mmol/L (136-145)
[2020-06-13 21:02] LABS: ALBUMIN 3.5 g/dl (3.4-5.0); BLOOD UREA NITROGEN 12.2 mg/dL (7-18); CALCIUM 9.2 mg/dL (8.5-10.1); CO2 23 mmol/L (21-32); GLUCOSE,RANDOM 89 mg/dL (74-106); MAGNESIUM 2.1 mg/dL (1.8-2.4)
[2020-06-13 21:05] LABS: SGOT/AST 63 U/L (15-37)
[2020-06-13 21:07] LABS: BILIRUBIN,TOTAL 0.3 mg/dL (0.2-1); TOT PROT 8.1 g/dl (6.4-8.2)
[2020-06-13 21:08] LABS: ALK PHOS 93 U/L (45-117)
[2020-06-13 21:28] LABS: ANION GAP 6 MMOL/L (8-16); SGPT/ALT 26 U/L (13-61)
[2020-06-13 21:29] LABS: POTASSIUM 6.2 mmol/L (3.5-5.1)
[2020-06-13] MEDS ORDERED: TERBUTALINE SULFATE 1 MG/1 ML VIAL SQ ONE ×2 (21:57→22:19)
[2020-06-13] MEDS ORDERED: ALBUTEROL SO4 0.083% IH SOL 2.5 MG/3 ML VIAL.NEB. NEB ONE (22:18)
[2020-06-13 22:24] LABS: POTASSIUM 3.3 mmol/L (3.5-5.1)
[2020-06-13 22:26] LABS: MAGNESIUM 2.4 mg/dL (1.8-2.4)
[2020-06-13] MEDS: ALBUTEROL SO4 0.083% IH SOL 2.5 MG/3 ML VIAL.NEB. NEB SCH ×4 (22:27→23:15)
[2020-06-13 22:29] LABS: CALCIUM 8.7 mg/dL (8.5-10.1)
[2020-06-13 22:30] LABS: BLOOD UREA NITROGEN 11.2 mg/dL (7-18)
[2020-06-13 22:33] LABS: CREATININE 0.9 mg/dL (0.55-1.3)
[2020-06-13] MEDS ORDERED: POTASSIUM CHLORIDE TABS 20 MEQ TABLET.ER (FP) PO ONE ×2 (22:33→22:53)
[2020-06-13 23:47] VITALS: BP 129/82; PULSE 110; TEMP 98.3
== END 2020-06-13 23:47 | disposition home or self-care (01) ==
LOC: JER 19:27
PROC: 3E0F7GC Introduction of Other Therapeutic Substance into Respiratory Tract, Via Natural or Artificial Opening (ICD-10-PCS; principal; 2020-06-13)
PROC: 3E0F7GC Introduction of Other Therapeutic Substance into Respiratory Tract, Via Natural or Artificial Opening (ICD-10-PCS; 2020-06-13)
PROC: 3E033GC Introduction of Other Therapeutic Substance into Peripheral Vein, Percutaneous Approach (ICD-10-PCS; 2020-06-13)
DX: J45.41 Moderate persistent asthma with (acute) exacerbation (principal)
CPT/HCPCS: 36415; 71045-TC-FY; 80048; 80053; 82550; 82553; 83735; 84484; 85025; 93005; 93010; 99285-25

== ENCOUNTER 2021-03-13 10:06 | Emergency (ER) | payer OTHER ==
[2021-03-13 10:17] VITALS: BP 146/99; PULSE 85; TEMP 98.1; BMI 46.8
[2021-03-13] MEDS ORDERED: SODIUM CHLORIDE 500 ML IV STA (11:46)
[2021-03-13] MEDS ORDERED: ACETAMINOPHEN 1000 MG/100 ML VIAL IVPB ONE (11:47)
[2021-03-13] MEDS ORDERED: ACETAMINOPHEN INJECTION 100 ML IVPB ONE (11:55)
[2021-03-13 13:19] LABS: HEMATOCRIT 35.6 % (32.4-45.2); HEMOGLOBIN 12.4 GM/dL (10.7-15.3); MCHC 34.8 g/dl (32.0-36.0); MEAN CELL VOLUME 83.4 fl (80-96); MEAN PLT VOLUME 7.1 fl (7.5-11.1); PLATELET COUNT 307 10^3/uL (134-434); RBC 4.27 M/mm3 (3.60-5.2); RDW 14.1 % (11.6-15.6); WHITE BLOOD COUNT 7.1 K/mm3 (4.0-10.0)
[2021-03-13 13:43] LABS: CHLORIDE 120 mmol/L (98-107); SODIUM 148 mmol/L (136-145)
[2021-03-13 13:46] LABS: ALBUMIN 2.4 g/dl (3.4-5.0); ANION GAP 5 MMOL/L (8-16); BLOOD UREA NITROGEN 9.8 mg/dL (7-18); CO2 24 mmol/L (21-32); GLUCOSE,RANDOM 76 mg/dL (74-106)
[2021-03-13 13:49] LABS: CREATININE 0.6 mg/dL (0.55-1.3); SGOT/AST 11 U/L (15-37); SGPT/ALT 14 U/L (13-61)
[2021-03-13 13:51] LABS: BILIRUBIN,TOTAL 0.1 mg/dL (0.2-1); TOT PROT 5.3 g/dl (6.4-8.2)
[2021-03-13 13:52] LABS: ALK PHOS 69 U/L (45-117)
[2021-03-13 13:55] LABS: CALCIUM 6.4 mg/dL (8.5-10.1)
[2021-03-13 13:59] LABS: URINE APPEARANCE CLEAR; URINE BILIRUBIN NEGATIVE (NEGATIVE); URINE COLOR YELLOW; URINE GLUCOSE (UA) NEGATIVE (NEGATIVE); URINE KETONE NEGATIVE (NEGATIVE); URINE LEUK ESTERASE NEGATIVE (NEGATIVE); URINE NITRITE NEGATIVE (NEGATIVE); URINE PROTEIN NEGATIVE (NEGATIVE); URINE UROBILINOGEN 0.2 mg/dL (0.2-1.0)
[2021-03-13] MEDS ORDERED: POTASSIUM CHLORIDE TABS 20 MEQ TABLET.ER (FP) PO ONE ×2 (14:46→15:06)
[2021-03-13] MEDS ORDERED: CALCIUM GLUC IN NACL, ISO-OSM 1 GM/50 ML BAG IVPB ONE (14:47)
[2021-03-13] MEDS ORDERED: MAGNESIUM OXIDE 400 MG TABLET (FP) PO ONE (14:47)
[2021-03-13] MEDS ORDERED: CALCIUM GLUCONATE 10% - 1,000 MG/10 ML VIAL ONE (15:06)
[2021-03-13] MEDS ORDERED: MAGNESIUM OXIDE 400 MG TABLET (FP) ONE (15:07)
[2021-03-13] MEDS ORDERED: KETOROLAC TROMETHAMINE 30 MG/1 ML VIAL IVPUSH ONE (17:30)
[2021-03-13] MEDS ORDERED: KETOROLAC TROMETHAMINE 30 MG/1 ML VIAL ONE (17:49)
[2021-03-13] MEDS ORDERED: ACETAMINOPHEN 500 MG TABLET (FP) PO ONE (21:02)
[2021-03-13] MEDS ORDERED: ACETAMINOPHEN 500 MG TABLET (FP) ONE (21:03)
[2021-03-13 21:23] LABS: ALBUMIN 3.3 g/dl (3.4-5.0); BLOOD UREA NITROGEN 12.8 mg/dL (7-18); MAGNESIUM 2.3 mg/dL (1.8-2.4)
[2021-03-13 21:27] LABS: BILIRUBIN,TOTAL 0.2 mg/dL (0.2-1); CREATININE 0.9 mg/dL (0.55-1.3)
[2021-03-13 21:35] LABS: TOT PROT 7.3 g/dl (6.4-8.2)
== END 2021-03-14 01:21 | disposition home or self-care (01) ==
LOC: JER 10:06
PROC: 3E033NZ Introduction of Analgesics, Hypnotics, Sedatives into Peripheral Vein, Percutaneous Approach (ICD-10-PCS; principal; 2021-03-13)
PROC: 3E033GC Introduction of Other Therapeutic Substance into Peripheral Vein, Percutaneous Approach (ICD-10-PCS; 2021-03-13)
PROC: 3E0337Z Introduction of Electrolytic and Water Balance Substance into Peripheral Vein, Percutaneous Approach (ICD-10-PCS; 2021-03-13)
PROC: 3E0333Z Introduction of Anti-inflammatory into Peripheral Vein, Percutaneous Approach (ICD-10-PCS; 2021-03-13)
DX: R10.32 Left lower quadrant pain (principal)
CPT/HCPCS: 36415; 74177-TC; 76830-TC; 76856-TC; 80053; 81003; 83735; 84703; 85027; 87086; 87491; 87591; 87661; 99285-25; J0131

== ENCOUNTER 2021-08-17 15:34 | Emergency (ER) | payer OTHER ==
[2021-08-17 15:50] VITALS: BP 121/70; PULSE 77; TEMP 98.1; BMI 41.0
[2021-08-17] MEDS ORDERED: ACETAMINOPHEN 1000 MG/100 ML BAG IVPB ONE (17:34)
[2021-08-17] MEDS ORDERED: SODIUM CHLORIDE 1,000 ML IV STA (17:34)
[2021-08-17] MEDS ORDERED: METOCLOPRAMIDE HCL INJECTION 10 MG/2 ML VIAL IVPB ONE (17:34)
[2021-08-17] MEDS ORDERED: METOCLOPRAMIDE HCL INJECTION 10 MG/2 ML VIAL ONE (17:38)
[2021-08-17] MEDS ORDERED: ACETAMINOPHEN INJECTION 100 ML IVPB ONE (17:38)
[2021-08-17 18:04] LABS: BASO % 1.1 % (0-2.0); EOS % 3.2 % (0-4.5); HEMATOCRIT 36.2 % (32.4-45.2); LYMPH % 32.6 % (8-40); MCH 28.2 pg (25.7-33.7); MCHC 33.1 g/dl (32.0-36.0); MEAN CELL VOLUME 85.4 fl (80-96); MONO % 11.2 % (3.8-10.2); NEUT % 51.9 % (42.8-82.8); RBC 4.24 M/mm3 (3.60-5.2); RDW 14.7 % (11.6-15.6); WHITE BLOOD COUNT 8.5 K/mm3 (4.0-10.0)
[2021-08-17 18:17] LABS: CALCIUM 9.1 mg/dL (8.5-10.1)
[2021-08-17 18:18] LABS: ALBUMIN 3.6 g/dl (3.4-5.0)
[2021-08-17 18:21] LABS: CREATININE 0.8 mg/dL (0.55-1.3)
[2021-08-17 18:22] LABS: BILIRUBIN,TOTAL 0.5 mg/dL (0.2-1); TOT PROT 8.4 g/dl (6.4-8.2)
[2021-08-17 18:49] LABS: MEAN PLT VOLUME 8.5 fl (7.5-11.1); PLATELET COUNT 298 10^3/uL (134-434)
[2021-08-17 18:50] LABS: PLATELET ESTIMATE ADEQUATE
[2021-08-17 19:45] LABS: URINE APPEARANCE CLEAR; URINE BILIRUBIN NEGATIVE (NEGATIVE); URINE COLOR YELLOW; URINE GLUCOSE (UA) NEGATIVE (NEGATIVE); URINE KETONE TRACE (NEGATIVE); URINE LEUK ESTERASE NEGATIVE (NEGATIVE); URINE NITRITE NEGATIVE (NEGATIVE); URINE PROTEIN NEGATIVE (NEGATIVE); URINE UROBILINOGEN 0.2 mg/dL (0.2-1.0)
[2021-08-18 15:08] LABS: SARS-CoV-2 NAA Not Detected (Not Detected)
== END 2021-08-17 21:27 | disposition home or self-care (01) ==
LOC: JER 15:34
PROC: 3E0333Z Introduction of Anti-inflammatory into Peripheral Vein, Percutaneous Approach (ICD-10-PCS; principal; 2021-08-17)
PROC: 3E033GC Introduction of Other Therapeutic Substance into Peripheral Vein, Percutaneous Approach (ICD-10-PCS; 2021-08-17)
PROC: 3E0337Z Introduction of Electrolytic and Water Balance Substance into Peripheral Vein, Percutaneous Approach (ICD-10-PCS; 2021-08-17)
DX: G44.209 Tension-type headache, unspecified, not intractable (principal)
CPT/HCPCS: 36415; 70450-TC; 80053; 81003; 84703; 85025; 87804; 96361; 96374; 96375; 99284-25; C9803-CS; U0003; U0005

== ENCOUNTER 2022-05-26 16:08 | Inpatient (IN) | payer OTHER ==
[2022-05-26] MEDS ORDERED: ACETAMINOPHEN 1000 MG/100 ML BAG IVPB ONE (17:02)
[2022-05-26] MEDS ORDERED: ONDANSETRON 4 MG/2 ML VIAL IVPUSH ONE ×2 (17:02→23:51)
[2022-05-26] MEDS ORDERED: SODIUM CHLORIDE 1,000 ML IV STA (17:02)
[2022-05-26] MEDS ORDERED: ONDANSETRON 4 MG/2 ML VIAL ONE (17:10)
[2022-05-26] MEDS ORDERED: ACETAMINOPHEN INJECTION 100 ML IVPB ONE (17:10)
[2022-05-26 17:39] LABS: BASO % 0.9 % (0-2.0); HEMATOCRIT 39.5 % (32.4-45.2); HEMOGLOBIN 12.5 GM/dL (10.7-15.3); LYMPH % 42.2 % (8-40); MCH 26.9 pg (25.7-33.7); MCHC 31.7 g/dl (32.0-36.0); MEAN CELL VOLUME 84.8 fl (80-96); MEAN PLT VOLUME 8.1 fl (7.5-11.1); MONO % 9.7 % (3.8-10.2); NEUT % 42.2 % (42.8-82.8); PLATELET COUNT 397 10^3/uL (134-434); RBC 4.66 M/mm3 (3.60-5.2); RDW 14.7 % (11.6-15.6); WHITE BLOOD COUNT 8.2 K/mm3 (4.0-10.0)
[2022-05-26 17:40] LABS: URINE APPEARANCE CLEAR; URINE BILIRUBIN NEGATIVE (NEGATIVE); URINE COLOR YELLOW; URINE GLUCOSE (UA) NEGATIVE (NEGATIVE); URINE KETONE NEGATIVE (NEGATIVE); URINE LEUK ESTERASE NEGATIVE (NEGATIVE); URINE NITRITE NEGATIVE (NEGATIVE); URINE PROTEIN NEGATIVE (NEGATIVE); URINE UROBILINOGEN 0.2 mg/dL (0.2-1.0)
[2022-05-26 17:43] LABS: HCG,QUALITATIVE URINE Negative
[2022-05-26 18:07] LABS: ALBUMIN 3.9 g/dl (3.4-5.0); BLOOD UREA NITROGEN 6.3 mg/dL (7-18); CALCIUM 9.8 mg/dL (8.5-10.1)
[2022-05-26 18:12] LABS: BILIRUBIN,TOTAL 0.3 mg/dL (0.2-1); TOT PROT 8.2 g/dl (6.4-8.2)
[2022-05-26] MEDS ORDERED: morphine CARPU-JECT 2 MG/1 ML DISP.SYRIN IVPUSH ONE (23:50)
[2022-05-27] MEDS ORDERED: ONDANSETRON 4 MG/2 ML VIAL ONE (00:02)
[2022-05-27] MEDS ORDERED: ACETAMINOPHEN 1000 MG/100 ML BAG IVPB PRN (01:37)
[2022-05-27] MEDS ORDERED: ONDANSETRON 4 MG/2 ML VIAL IVPUSH PRN (01:37)
[2022-05-27] MEDS: DEXTROSE 5%-0.45% SALINE 1,000 ML IV SCH ×2 (02:36→18:45)
[2022-05-27] MEDS ORDERED: HEPARIN NA (PORCINE) 5,000 UNITS/ML 1ML VIAL ONE (09:20)
[2022-05-27] MEDS ORDERED: PANTOPRAZOLE SODIUM 40 MG VIAL ONE (09:21)
[2022-05-27 09:36] LABS: BASO % 0.6 % (0-2.0); EOS % 5.6 % (0-4.5); HEMATOCRIT 36.6 % (32.4-45.2); HEMOGLOBIN 12.1 GM/dL (10.7-15.3); LYMPH % 35.9 % (8-40); MCH 28.2 pg (25.7-33.7); MCHC 33.1 g/dl (32.0-36.0); MEAN CELL VOLUME 85.2 fl (80-96); MEAN PLT VOLUME 7.7 fl (7.5-11.1); MONO % 10.6 % (3.8-10.2); NEUT % 47.3 % (42.8-82.8); PLATELET COUNT 363 10^3/uL (134-434); RDW 14.1 % (11.6-15.6); WHITE BLOOD COUNT 6.5 K/mm3 (4.0-10.0)
[2022-05-27] MEDS: HEPARIN NA (PORCINE) 5,000 UNITS/ML 1ML VIAL SQ SCH ×2 (09:38→22:03)
[2022-05-27] MEDS: PANTOPRAZOLE 40 MG TABLET PO SCH (09:38)
[2022-05-27 10:03] LABS: CALCIUM 9.1 mg/dL (8.5-10.1)
[2022-05-27 10:04] LABS: ALBUMIN 3.7 g/dl (3.4-5.0); BLOOD UREA NITROGEN 10.2 mg/dL (7-18)
[2022-05-27 10:06] LABS: CREATININE 1.1 mg/dL (0.55-1.3)
[2022-05-27 10:07] LABS: BILIRUBIN,TOTAL 0.4 mg/dL (0.2-1); TOT PROT 7.7 g/dl (6.4-8.2)
[2022-05-27] MEDS ORDERED: MAG HYDROX/AL HYDROX/SIMETH 30 ML UNIT-DOSE CUP ONE (13:02)
[2022-05-27 18:34] VITALS: BMI 47.4
[2022-05-28] MEDS: DEXTROSE 5%-0.45% SALINE 1,000 ML IV SCH (08:35)
[2022-05-28] MEDS: HEPARIN NA (PORCINE) 5,000 UNITS/ML 1ML VIAL SQ SCH ×2 (09:07→22:33)
[2022-05-28] MEDS: PANTOPRAZOLE 40 MG TABLET PO SCH (09:07)
[2022-05-28 10:48] LABS: HEMATOCRIT 36.3 % (32.4-45.2); HEMOGLOBIN 11.9 GM/dL (10.7-15.3); MCH 27.9 pg (25.7-33.7); MCHC 32.8 g/dl (32.0-36.0); MEAN CELL VOLUME 85.3 fl (80-96); MEAN PLT VOLUME 7.8 fl (7.5-11.1); PLATELET COUNT 333 10^3/uL (134-434); RBC 4.25 M/mm3 (3.60-5.2); RDW 14.5 % (11.6-15.6); WHITE BLOOD COUNT 5.5 K/mm3 (4.0-10.0)
[2022-05-28 11:21] LABS: ALBUMIN 3.5 g/dl (3.4-5.0); BLOOD UREA NITROGEN 8.8 mg/dL (7-18)
[2022-05-28 11:24] LABS: CREATININE 0.9 mg/dL (0.55-1.3)
[2022-05-28 11:25] LABS: BILIRUBIN,TOTAL 0.4 mg/dL (0.2-1); TOT PROT 7.3 g/dl (6.4-8.2)
[2022-05-29] MEDS: DEXTROSE 5%-0.45% SALINE 1,000 ML IV SCH ×2 (04:35→11:50)
[2022-05-29] MEDS: HEPARIN NA (PORCINE) 5,000 UNITS/ML 1ML VIAL SQ SCH ×2 (10:03→21:01)
[2022-05-29] MEDS: PANTOPRAZOLE 40 MG TABLET PO SCH (10:03)
[2022-05-29] MEDS ORDERED: ACETAMINOPHEN 1000 MG/100 ML BAG IVPB ONE (11:00)
[2022-05-29] MEDS: POLYETHYLENE GLYCOL (HEALTHYLAX) 3350 17 GM PACKET PO SCH (17:29)
[2022-05-29] MEDS: ACETAMINOPHEN 1000 MG/100 ML BAG IVPB PRN (18:05)
[2022-05-30] MEDS: DEXTROSE 5%-0.45% SALINE 1,000 ML IV SCH ×2 (00:36→17:42)
[2022-05-30] MEDS: ACETAMINOPHEN 1000 MG/100 ML BAG IVPB PRN ×2 (04:43→10:50)
[2022-05-30] MEDS: PANTOPRAZOLE 40 MG TABLET PO SCH (09:39)
[2022-05-30] MEDS: HEPARIN NA (PORCINE) 5,000 UNITS/ML 1ML VIAL SQ SCH ×2 (09:39→21:32)
[2022-05-30] MEDS: POLYETHYLENE GLYCOL (HEALTHYLAX) 3350 17 GM PACKET PO SCH (09:39)
[2022-05-30] MEDS ORDERED: ACETAMINOPHEN 1000 MG/100 ML BAG IVPB ONE (21:08)
[2022-05-31] MEDS: DEXTROSE 5%-0.45% SALINE 1,000 ML IV SCH (01:17)
[2022-05-31] MEDS ORDERED: ACETAMINOPHEN 1000 MG/100 ML BAG IVPB ONE (04:59)
[2022-05-31] MEDS: POLYETHYLENE GLYCOL (HEALTHYLAX) 3350 17 GM PACKET PO SCH (09:55)
[2022-05-31] MEDS: HEPARIN NA (PORCINE) 5,000 UNITS/ML 1ML VIAL SQ SCH (09:55)
[2022-05-31] MEDS: PANTOPRAZOLE 40 MG TABLET PO SCH (10:53)
[2022-05-31 14:03] VITALS: BP 132/63; PULSE 83; RESP 17; TEMP 97.7
[2022-05-31 16:54] LABS: BASO % 0.8 % (0-2.0); EOS % 6.6 % (0-4.5); HEMATOCRIT 36.6 % (32.4-45.2); HEMOGLOBIN 12.1 GM/dL (10.7-15.3); LYMPH % 36.3 % (8-40); MEAN CELL VOLUME 84.9 fl (80-96); MEAN PLT VOLUME 8.9 fl (7.5-11.1); MONO % 8.9 % (3.8-10.2); NEUT % 47.4 % (42.8-82.8); PLATELET COUNT 293 10^3/uL (134-434); RBC 4.31 M/mm3 (3.60-5.2); RDW 14.1 % (11.6-15.6); WHITE BLOOD COUNT 8.5 K/mm3 (4.0-10.0)
[2022-05-31 17:12] LABS: CALCIUM 9.2 mg/dL (8.5-10.1)
[2022-05-31 17:13] LABS: ALBUMIN 3.5 g/dl (3.4-5.0)
[2022-05-31 17:17] LABS: BILIRUBIN,TOTAL 0.5 mg/dL (0.2-1); TOT PROT 7.6 g/dl (6.4-8.2)
== END 2022-05-31 18:44 | disposition home or self-care (01) | DRG 249 ==
LOC: JER 16:08 → JERBED 05-27 00:37 → OBSVTOIN 05-27 01:35 → J6S 05-27 18:10
PROVIDERS: ADMIT Internal Medicine; ATTEND Internal Medicine
DX: K52.9 Noninfective gastroenteritis and colitis, unspecified (principal); K57.90 Diverticulosis of intestine, part unspecified, without perforation or abscess without bleeding; K21.9 Gastro-esophageal reflux disease without esophagitis; N83.209 Unspecified ovarian cyst, unspecified side; E66.01 Morbid (severe) obesity due to excess calories; Z68.42 Body mass index [BMI] 45.0-49.9, adult
CPT/HCPCS: 36415; 74177-TC; 76830-TC; 80053; 81003; 82962; 83690; 84703; 85025; 85027; 87086; 99285-25; C9803-CS; G0378; J1644; Q9967; U0003; U0005

== ENCOUNTER 2022-07-28 15:40 | Observation (INO) | payer OTHER ==
[2022-07-28 15:59] VITALS: BMI 46.5
[2022-07-28 17:57] LABS: BASO % 0.9 % (0-2.0); EOS % 3.3 % (0-4.5); HEMATOCRIT 37.8 % (32.4-45.2); HEMOGLOBIN 12.3 GM/dL (10.7-15.3); LYMPH % 42.1 % (8-40); MCHC 32.5 g/dl (32.0-36.0); MEAN CELL VOLUME 83.2 fl (80-96); MEAN PLT VOLUME 7.9 fl (7.5-11.1); MONO % 7.3 % (3.8-10.2); NEUT % 46.4 % (42.8-82.8); PLATELET COUNT 352 10^3/uL (134-434); RBC 4.54 M/mm3 (3.60-5.2); WHITE BLOOD COUNT 8.7 K/mm3 (4.0-10.0)
[2022-07-28 18:04] LABS: INR 1.09 (0.83-1.09); PROTHROMBIN TIME (PATIENT) 12.6 SEC (9.7-13.0)
[2022-07-28 18:07] LABS: ACTIVATED PTT 30.7 SECONDS (25.2-36.5)
[2022-07-28 18:10] LABS: CALCIUM 9.3 mg/dL (8.5-10.1)
[2022-07-28 18:11] LABS: ALBUMIN 3.7 g/dl (3.4-5.0); BLOOD UREA NITROGEN 14.6 mg/dL (7-18)
[2022-07-28 18:15] LABS: BILIRUBIN,TOTAL 0.2 mg/dL (0.2-1); TOT PROT 8.2 g/dl (6.4-8.2)
[2022-07-28] MEDS ORDERED: FAMOTIDINE 20 MG/50 ML IVPB 20 MG/50 ML MG IVPB ONE (18:30)
[2022-07-28] MEDS ORDERED: morphine CARPU-JECT 2 MG/1 ML DISP.SYRIN IVPUSH ONE (18:30)
[2022-07-28] MEDS ORDERED: ONDANSETRON 4 MG/2 ML VIAL IVPUSH ONE (18:30)
[2022-07-28] MEDS ORDERED: ACETAMINOPHEN 1000 MG/100 ML BAG IVPB ONE (18:30)
[2022-07-28] MEDS ORDERED: SODIUM CHLORIDE 0.9% 1000 ML INFUS.BAG IV ONE (18:30)
[2022-07-28] MEDS ORDERED: ACETAMINOPHEN INJECTION 100 ML IVPB ONE (18:34)
[2022-07-28] MEDS ORDERED: ONDANSETRON 4 MG/2 ML VIAL ONE (18:34)
[2022-07-28] MEDS ORDERED: KETOROLAC TROMETHAMINE 15 MG/ML VIAL IVPUSH ONE (20:56)
[2022-07-28] MEDS ORDERED: KETOROLAC TROMETHAMINE 15 MG/ML VIAL ONE (20:58)
[2022-07-28 21:53] LABS: URINE APPEARANCE CLEAR; URINE BILIRUBIN NEGATIVE (NEGATIVE); URINE COLOR YELLOW; URINE GLUCOSE (UA) NEGATIVE (NEGATIVE)
[2022-07-28 21:54] LABS: HYALINE CASTS 1.5 /uL (0-3.1); PH,URINE 6.5 (5.0-8.0); URINE BACTERIA 462.1 /uL (0-1359); URINE KETONE NEGATIVE (NEGATIVE); URINE LEUK ESTERASE NEGATIVE (NEGATIVE); URINE NITRITE NEGATIVE (NEGATIVE); URINE PROTEIN NEGATIVE (NEGATIVE); URINE RBC 41.9 /uL (0-23.9); URINE UROBILINOGEN 0.2 mg/dL (0.2-1.0); URINE WBC 7.1 /uL (0-25.8)
[2022-07-28] MEDS ORDERED: ALBUTEROL SO4 HFA INHALER IH PRN (23:42)
[2022-07-28] MEDS ORDERED: ONDANSETRON 4 MG/2 ML VIAL IVPUSH PRN (23:43)
[2022-07-28] MEDS ORDERED: KETOROLAC TROMETHAMINE 30 MG/1 ML VIAL IVPUSH PRN (23:44)
[2022-07-28] MEDS ORDERED: DEXTROSE 5%-0.45% SALINE 1,000 ML IV SCH (23:45)
[2022-07-29 08:36] LABS: EOS % 4.5 % (0-4.5); HEMATOCRIT 34.3 % (32.4-45.2); HEMOGLOBIN 11.1 GM/dL (10.7-15.3); LYMPH % 42.2 % (8-40); MCHC 32.5 g/dl (32.0-36.0); MEAN CELL VOLUME 83.3 fl (80-96); MEAN PLT VOLUME 7.5 fl (7.5-11.1); MONO % 11.4 % (3.8-10.2); NEUT % 40.9 % (42.8-82.8); PLATELET COUNT 320 10^3/uL (134-434); RBC 4.12 M/mm3 (3.60-5.2); RDW 14.2 % (11.6-15.6); WHITE BLOOD COUNT 6.4 K/mm3 (4.0-10.0)
[2022-07-29 09:01] LABS: CALCIUM 8.5 mg/dL (8.5-10.1)
[2022-07-29 09:02] LABS: ALBUMIN 3.1 g/dl (3.4-5.0)
[2022-07-29 09:03] LABS: CREATININE 0.8 mg/dL (0.55-1.3)
[2022-07-29 09:04] LABS: BILIRUBIN,TOTAL 0.3 mg/dL (0.2-1); TOT PROT 6.8 g/dl (6.4-8.2)
[2022-07-29] MEDS ORDERED: SODIUM PHOSPHATE/NA BIPHOS 133 ML ENEMA RC ONE (09:58)
[2022-07-29] MEDS ORDERED: METOCLOPRAMIDE HCL INJECTION 10 MG/2 ML VIAL IVPB SCH (10:00)
[2022-07-29] MEDS: ENOXAPARIN NA (PORCINE) 40 MG/0.4 ML DISP.SYRIN SQ SCH (10:33)
[2022-07-29] MEDS: PANTOPRAZOLE 40 MG TABLET PO SCH (10:34)
[2022-07-29] MEDS: METOCLOPRAMIDE HCL INJECTION 10 MG/2 ML VIAL IVPUSH SCH ×2 (10:40→17:25)
[2022-07-29] MEDS ORDERED: FLU VACC QS2022-23(6MOS UP)/PF 60 MCG/0.5 ML SYRINGE IM ONE (11:00)
[2022-07-29] MEDS ORDERED: SODIUM CHLORIDE 0.9% 500 ML INFUS.BAG IV ONE (12:25)
[2022-07-30] MEDS: METOCLOPRAMIDE HCL INJECTION 10 MG/2 ML VIAL IVPUSH SCH ×3 (01:20→17:49)
[2022-07-30 08:33] LABS: BASO % 0.8 % (0-2.0); EOS % 3.1 % (0-4.5); HEMATOCRIT 34.9 % (32.4-45.2); HEMOGLOBIN 11.4 GM/dL (10.7-15.3); LYMPH % 29.9 % (8-40); MCH 27.9 pg (25.7-33.7); MCHC 32.8 g/dl (32.0-36.0); MEAN CELL VOLUME 85.1 fl (80-96); MEAN PLT VOLUME 7.9 fl (7.5-11.1); NEUT % 57.2 % (42.8-82.8); PLATELET COUNT 333 10^3/uL (134-434); RDW 14.2 % (11.6-15.6); WHITE BLOOD COUNT 7.8 K/mm3 (4.0-10.0)
[2022-07-30 09:19] LABS: CALCIUM 8.6 mg/dL (8.5-10.1)
[2022-07-30 09:20] LABS: ALBUMIN 3.2 g/dl (3.4-5.0)
[2022-07-30 09:23] LABS: CREATININE 0.8 mg/dL (0.55-1.3)
[2022-07-30 09:24] LABS: BILIRUBIN,TOTAL 0.4 mg/dL (0.2-1)
[2022-07-30] MEDS: ENOXAPARIN NA (PORCINE) 40 MG/0.4 ML DISP.SYRIN SQ SCH (09:53)
[2022-07-30] MEDS: PANTOPRAZOLE 40 MG TABLET PO SCH (09:54)
[2022-07-30] MEDS ORDERED: POLYETHYLENE GLYCOL 3350 255 GM BTL PO ONE (11:00)
[2022-07-31] MEDS: METOCLOPRAMIDE HCL INJECTION 10 MG/2 ML VIAL IVPUSH SCH ×2 (01:24→10:33)
[2022-07-31 10:18] VITALS: BP 142/79; PULSE 84; RESP 20; TEMP 98.1
[2022-07-31] MEDS: PANTOPRAZOLE 40 MG TABLET PO SCH (10:33)
[2022-07-31] MEDS: ENOXAPARIN NA (PORCINE) 40 MG/0.4 ML DISP.SYRIN SQ SCH (10:33)
== END 2022-07-31 10:20 | disposition home or self-care (01) ==
LOC: JER 15:40 → JERBED 22:34 → UNDOADMOB 22:34 → INTOOBSV 23:42 → OBSVTOIN 23:42 → JERBED 07-29 04:26 → J5S 07-29 04:26 → JERBED 07-29 10:54 → J5S 07-29 10:54
PROVIDERS: ADMIT Internal Medicine; ATTEND Internal Medicine
PROC: 3E033NZ Introduction of Analgesics, Hypnotics, Sedatives into Peripheral Vein, Percutaneous Approach (ICD-10-PCS; principal; 2022-07-29)
PROC: 3E033GC Introduction of Other Therapeutic Substance into Peripheral Vein, Percutaneous Approach (ICD-10-PCS; 2022-07-29)
PROC: 3E0333Z Introduction of Anti-inflammatory into Peripheral Vein, Percutaneous Approach (ICD-10-PCS; 2022-07-29)
PROC: 3E033NZ Introduction of Analgesics, Hypnotics, Sedatives into Peripheral Vein, Percutaneous Approach (ICD-10-PCS; 2022-07-29)
PROC: 3E0337Z Introduction of Electrolytic and Water Balance Substance into Peripheral Vein, Percutaneous Approach (ICD-10-PCS; 2022-07-29)
DX: R10.32 Left lower quadrant pain (principal); J45.909 Unspecified asthma, uncomplicated; J18.9 Pneumonia, unspecified organism; Z86.16 Personal history of COVID-19; Z98.84 Bariatric surgery status; K52.9 Noninfective gastroenteritis and colitis, unspecified; R42 Dizziness and giddiness; R10.9 Unspecified abdominal pain; E66.01 Morbid (severe) obesity due to excess calories; Z68.42 Body mass index [BMI] 45.0-49.9, adult; Z88.0 Allergy status to penicillin
CPT/HCPCS: 0241U-QW; 36415; 74019-TC-FY; 74021-TC-FY; 74177-TC; 76830-TC; 80053; 81003; 82962; 83690; 84703; 85025; 85610; 85730; 87086; 93005; 93010; 96365; 96372; 96375; 96376; 99285-25; G0378; Q9967

== ENCOUNTER 2022-12-05 12:47 | Emergency (ER) | payer OTHER ==
[2022-12-05 13:12] VITALS: BP 123/74; PULSE 88; RESP 18; TEMP 98.2; BMI 48.4
[2022-12-05] MEDS ORDERED: CEPHALEXIN MONOHYDRATE 500 MG CAPSULE (UD) PO ONE (15:26)
[2022-12-05] MEDS ORDERED: CEPHALEXIN MONOHYDRATE 500 MG CAPSULE (UD) ONE ×2 (15:33→15:34)
== END 2022-12-05 15:50 | disposition home or self-care (01) ==
LOC: JER 12:47
PROC: 0H9BXZZ Drainage of Right Upper Arm Skin, External Approach (ICD-10-PCS; principal; 2022-12-05)
DX: L02.413 Cutaneous abscess of right upper limb (principal); M25.511 Pain in right shoulder; R68.83 Chills (without fever); R11.0 Nausea
CPT/HCPCS: 99283-25